=== PATIENT | male | born 1965 | race African-American/Black ===

== ENCOUNTER 2021-05-24 13:40 | Inpatient (IN) | payer OTHER ==
[2021-05-24] MEDS ORDERED: ONDANSETRON *ODT* 4 MG TABLET SL PRN (14:43)
[2021-05-24] MEDS ORDERED: MAG HYDROX/AL HYDROX/SIMETH 30 ML UNIT-DOSE CUP PO PRN (14:43)
[2021-05-24] MEDS ORDERED: diazePAM 5 MG TABLET PO PRN (14:43)
[2021-05-24] MEDS ORDERED: BISMUTH SUBSALICYLATE 524 MG/30 ML PO PRN (14:43)
[2021-05-24] MEDS ORDERED: NICOTINE 10 MG CARTRIDGE (INHALER) IH PRN (14:43)
[2021-05-24] MEDS ORDERED: ACETAMINOPHEN 325 MG TABLET (FP) PO PRN ×2 (14:43)
[2021-05-24] MEDS ORDERED: LOPERAMIDE HCL 2 MG CAPSULE PO PRN (14:43)
[2021-05-24] MEDS ORDERED: MAGNESIUM HYDROX 2400MG/30ML ORAL SUSPENSION 30 ML CUP PO PRN (14:43)
[2021-05-24] MEDS ORDERED: MENTHOL/PHENOL 1 EACH UD MM PRN (14:43)
[2021-05-24] MEDS ORDERED: MAGNESIUM CITRATE 300 ML BOTTLE PO PRN (14:43)
[2021-05-24 15:34] VITALS: BMI 19.5
[2021-05-24] MEDS: MELATONIN 5 MG TABLETS PO SCH (23:55)
[2021-05-24] MEDS: IBUPROFEN 400 MG TABLET (FP) PO PRN (23:55)
[2021-05-24] MEDS: THIAMINE HCL 100 MG TABLET (FP) PO SCH (23:55)
[2021-05-24] MEDS: hydrOXYzine PAMOATE 25 MG CAPSULE (FP) PO SCH ×2 (23:55→23:57)
[2021-05-25] MEDS: diazePAM 5 MG TABLET PO SCH ×6 (00:55→22:44)
[2021-05-25] MEDS: hydrOXYzine PAMOATE 25 MG CAPSULE (FP) PO SCH ×5 (05:32→22:44)
[2021-05-25] MEDS: PRENATAL VITAMINS W/ FOLIC ACID TABLET (FP) PO SCH (10:29)
[2021-05-25] MEDS: IBUPROFEN 400 MG TABLET (FP) PO PRN ×2 (10:31→22:44)
[2021-05-25 12:29] LABS: CALCIUM 8.6 mg/dL (8.5-10.1)
[2021-05-25 12:30] LABS: BLOOD UREA NITROGEN 17.1 mg/dL (7-18)
[2021-05-25 12:33] LABS: CREATININE 1.1 mg/dL (0.55-1.3); HEMATOCRIT 37.3 % (35.4-49); HEMOGLOBIN 12.3 GM/dL (11.7-16.9); MCH 28.9 pg (25.7-33.7); MCHC 32.9 g/dl (32.0-35.9); MEAN CELL VOLUME 87.7 fl (80-96); MEAN PLT VOLUME 9.5 fl (7.5-11.1); PLATELET COUNT 156 10^3/uL (134-434); RBC 4.25 M/mm3 (4.00-5.60); RDW 13.8 % (11.9-15.9); WHITE BLOOD COUNT 5.7 K/mm3 (4.0-10.0)
[2021-05-25 12:34] LABS: BILIRUBIN,TOTAL 0.4 mg/dL (0.2-1); TOT PROT 5.6 g/dl (6.4-8.2)
[2021-05-25] MEDS: THIAMINE HCL 100 MG TABLET (FP) PO SCH (22:44)
[2021-05-25] MEDS: MELATONIN 5 MG TABLETS PO SCH (23:01)
[2021-05-26] MEDS: diazePAM 5 MG TABLET PO SCH ×3 (05:43→22:17)
[2021-05-26] MEDS: hydrOXYzine PAMOATE 25 MG CAPSULE (FP) PO SCH ×5 (05:43→22:21)
[2021-05-26 10:06] LABS: SARS-CoV-2 NAA Not Detected (Not Detected)
[2021-05-26] MEDS: PRENATAL VITAMINS W/ FOLIC ACID TABLET (FP) PO SCH (10:17)
[2021-05-26] MEDS: THIAMINE HCL 100 MG TABLET (FP) PO SCH (22:16)
[2021-05-26] MEDS: LATANOPROST 0.005% OPHTH SOLN 2.5ML BOTTLE OU SCH (22:19)
[2021-05-26] MEDS: IBUPROFEN 400 MG TABLET (FP) PO PRN (22:19)
[2021-05-26] MEDS: MELATONIN 5 MG TABLETS PO SCH (22:21)
[2021-05-27] MEDS: hydrOXYzine PAMOATE 25 MG CAPSULE (FP) PO SCH ×5 (07:46→23:26)
[2021-05-27] MEDS: diazePAM 5 MG TABLET PO SCH ×2 (07:46→18:12)
[2021-05-27] MEDS: PRENATAL VITAMINS W/ FOLIC ACID TABLET (FP) PO SCH (10:31)
[2021-05-27] MEDS: METHOCARBAMOL 500 MG TABLET PO PRN (10:32)
[2021-05-27] MEDS: MELATONIN 5 MG TABLETS PO SCH (23:26)
[2021-05-27] MEDS: LATANOPROST 0.005% OPHTH SOLN 2.5ML BOTTLE OU SCH (23:27)
[2021-05-27] MEDS: THIAMINE HCL 100 MG TABLET (FP) PO SCH (23:27)
[2021-05-28] MEDS ORDERED: diazePAM 5 MG TABLET PO ONE (06:00)
[2021-05-28] MEDS: hydrOXYzine PAMOATE 25 MG CAPSULE (FP) PO SCH ×2 (06:28→10:13)
[2021-05-28 09:22] VITALS: BP 118/79; PULSE 83; TEMP 98.2
[2021-05-28] MEDS: PRENATAL VITAMINS W/ FOLIC ACID TABLET (FP) PO SCH (10:13)
[2021-05-28] MEDS: METHOCARBAMOL 500 MG TABLET PO PRN (10:13)
== END 2021-05-28 12:22 | disposition other institution (70) | DRG 774 ==
LOC: YASAS 13:40 → Y6N 18:44
PROVIDERS: ADMIT Allergy & Immunology; ATTEND Allergy & Immunology
PROC: HZ2ZZZZ Detoxification Services for Substance Abuse Treatment (ICD-10-PCS; principal; 2021-05-24)
DX: F10.20 Alcohol dependence, uncomplicated (principal); F14.20 Cocaine dependence, uncomplicated; F12.20 Cannabis dependence, uncomplicated; F17.210 Nicotine dependence, cigarettes, uncomplicated; H40.9 Unspecified glaucoma; L30.9 Dermatitis, unspecified
CPT/HCPCS: 36415; 80053; 85027; 86780; 93005; 93010; C9803-CS; U0003; U0005

== ENCOUNTER 2021-05-28 12:27 | Inpatient (IN) | payer OTHER ==
[2021-05-28] MEDS ORDERED: LOPERAMIDE HCL 2 MG CAPSULE PO PRN (14:06)
[2021-05-28] MEDS ORDERED: NICOTINE 10 MG CARTRIDGE (INHALER) IH PRN (14:06)
[2021-05-28] MEDS ORDERED: MENTHOL/PHENOL 1 EACH UD MM PRN (14:06)
[2021-05-28] MEDS ORDERED: ACETAMINOPHEN 325 MG TABLET (FP) PO PRN (14:06)
[2021-05-28] MEDS ORDERED: MAGNESIUM HYDROX 2400MG/30ML ORAL SUSPENSION 30 ML CUP PO PRN (14:06)
[2021-05-28] MEDS ORDERED: P-EPHED 60MG/TRIPROLIDI 2.5MG TABLET PO PRN (14:06)
[2021-05-28] MEDS ORDERED: MAGNESIUM CITRATE 300 ML BOTTLE PO PRN (14:06)
[2021-05-28] MEDS ORDERED: guaiFENesin 200 MG/10 ML 10 ML UNIT-DOSE CUPS PO PRN (14:06)
[2021-05-28] MEDS ORDERED: MAG HYDROX/AL HYDROX/SIMETH 30 ML UNIT-DOSE CUP PO PRN (14:06)
[2021-05-28] MEDS: THIAMINE HCL 100 MG TABLET (FP) PO SCH (22:17)
[2021-05-28] MEDS: LATANOPROST 0.005% OPHTH SOLN 2.5ML BOTTLE OU SCH (22:17)
[2021-05-28] MEDS: KETOCONAZOLE 2% CREAM - 60GM TUBE TP SCH (22:17)
[2021-05-28] MEDS: MELATONIN 5 MG TABLETS PO SCH (22:22)
[2021-05-29] MEDS: KETOCONAZOLE 2% CREAM - 60GM TUBE TP SCH ×3 (06:31→22:01)
[2021-05-29] MEDS: NICOTINE 7 MG/24 HOURS TOPICAL PATCH TD SCH (09:24)
[2021-05-29] MEDS: PRENATAL VITAMINS W/ FOLIC ACID TABLET (FP) PO SCH (09:24)
[2021-05-29] MEDS ORDERED: KETOCONAZOLE 2% CREAM - 60GM TUBE TP SCH (10:08)
[2021-05-29] MEDS: LIDOCAINE 2.5%/PRILOCAINE 2.5% 30 GRAM TUBE TP SCH ×2 (13:16→22:00)
[2021-05-29] MEDS ORDERED: LIDOCAINE 2.5%/PRILOCAINE 2.5% 30 GRAM TUBE TP SCH (14:00)
[2021-05-29] MEDS: IBUPROFEN 400 MG TABLET (FP) PO PRN (21:20)
[2021-05-29] MEDS: hydrOXYzine PAMOATE 25 MG CAPSULE (FP) PO PRN (21:21)
[2021-05-29] MEDS: MELATONIN 5 MG TABLETS PO SCH (22:00)
[2021-05-29] MEDS: LATANOPROST 0.005% OPHTH SOLN 2.5ML BOTTLE OU SCH (22:01)
[2021-05-29] MEDS: THIAMINE HCL 100 MG TABLET (FP) PO SCH (22:01)
[2021-05-30 06:48] VITALS: TEMP 97.1
[2021-05-30] MEDS: KETOCONAZOLE 2% CREAM - 60GM TUBE TP SCH ×3 (06:49→22:01)
[2021-05-30] MEDS: LIDOCAINE 2.5%/PRILOCAINE 2.5% 30 GRAM TUBE TP SCH ×3 (06:49→22:01)
[2021-05-30] MEDS: NICOTINE 7 MG/24 HOURS TOPICAL PATCH TD SCH (10:32)
[2021-05-30] MEDS: PRENATAL VITAMINS W/ FOLIC ACID TABLET (FP) PO SCH (10:32)
[2021-05-30] MEDS: TOLNAFTATE 1% POWDER 45 GM POW TP SCH ×2 (12:42→22:01)
[2021-05-30] MEDS ORDERED: COLLOIDAL OATMEAL 1 BAR EACH TP PRN (14:35)
[2021-05-30] MEDS: hydrOXYzine PAMOATE 25 MG CAPSULE (FP) PO PRN (21:58)
[2021-05-30] MEDS: IBUPROFEN 400 MG TABLET (FP) PO PRN (21:58)
[2021-05-30] MEDS: MELATONIN 5 MG TABLETS PO SCH (22:01)
[2021-05-30] MEDS: THIAMINE HCL 100 MG TABLET (FP) PO SCH (22:01)
[2021-05-30] MEDS: LATANOPROST 0.005% OPHTH SOLN 2.5ML BOTTLE OU SCH (22:01)
[2021-05-31 06:39] VITALS: BP 113/79; PULSE 64
[2021-05-31] MEDS: LIDOCAINE 2.5%/PRILOCAINE 2.5% 30 GRAM TUBE TP SCH ×2 (07:10→13:55)
[2021-05-31] MEDS: KETOCONAZOLE 2% CREAM - 60GM TUBE TP SCH ×2 (07:24→13:55)
[2021-05-31] MEDS: PRENATAL VITAMINS W/ FOLIC ACID TABLET (FP) PO SCH (11:00)
[2021-05-31] MEDS: TOLNAFTATE 1% POWDER 45 GM POW TP SCH (11:00)
[2021-05-31] MEDS: NICOTINE 7 MG/24 HOURS TOPICAL PATCH TD SCH (11:00)
[2021-06-01 14:08] LABS: SARS-CoV-2 NAA Not Detected (Not Detected)
== END 2021-05-31 14:08 | disposition left against medical advice (07) | DRG 770 ==
LOC: YASAS 12:27 → Y3E 12:28
PROVIDERS: ADMIT Allergy & Immunology; ATTEND Allergy & Immunology
PROC: HZ42ZZZ Group Counseling for Substance Abuse Treatment, Cognitive-Behavioral (ICD-10-PCS; principal; 2021-05-28)
DX: F10.20 Alcohol dependence, uncomplicated (principal); F14.20 Cocaine dependence, uncomplicated; F12.20 Cannabis dependence, uncomplicated; F17.210 Nicotine dependence, cigarettes, uncomplicated; H40.9 Unspecified glaucoma; Z88.8 Allergy status to other drugs, medicaments and biological substances
CPT/HCPCS: C9803-CS; U0003; U0005

== ENCOUNTER 2021-08-14 14:36 | Inpatient (IN) | payer OTHER ==
[2021-08-14] MEDS ORDERED: MAG HYDROX/AL HYDROX/SIMETH 30 ML UNIT-DOSE CUP PO PRN (17:56)
[2021-08-14] MEDS ORDERED: MAGNESIUM CITRATE 300 ML BOTTLE PO PRN (17:56)
[2021-08-14] MEDS ORDERED: DICYCLOMINE HCL 10 MG CAPSULE PO PRN (17:56)
[2021-08-14] MEDS ORDERED: BISMUTH SUBSALICYLATE 524 MG/30 ML PO PRN (17:56)
[2021-08-14] MEDS ORDERED: LOPERAMIDE HCL 2 MG CAPSULE PO PRN (17:56)
[2021-08-14] MEDS ORDERED: MAGNESIUM HYDROX 2400MG/30ML ORAL SUSPENSION 30 ML CUP PO PRN (17:56)
[2021-08-14] MEDS ORDERED: hydrOXYzine PAMOATE 25 MG CAPSULE (FP) PO PRN (17:56)
[2021-08-14] MEDS ORDERED: ACETAMINOPHEN 325 MG TABLET (FP) PO PRN ×2 (17:56)
[2021-08-14] MEDS ORDERED: IBUPROFEN 600 MG TABLET (FP) PO PRN (17:56)
[2021-08-14] MEDS ORDERED: ONDANSETRON *ODT* 4 MG TABLET SL PRN (17:56)
[2021-08-14] MEDS ORDERED: MELATONIN 5 MG TABLETS PO PRN (17:56)
[2021-08-14] MEDS ORDERED: METHOCARBAMOL 500 MG TABLET PO PRN (17:56)
[2021-08-14] MEDS ORDERED: P-EPHED 60MG/TRIPROLIDI 2.5MG TABLET PO PRN (17:56)
[2021-08-14] MEDS ORDERED: BENZOCAINE/MENTHOL (CHLORASEPTIC ) LOZENGE MM PRN (17:56)
[2021-08-14] MEDS ORDERED: IBUPROFEN 400 MG TABLET (FP) PO PRN (17:56)
[2021-08-14 18:33] VITALS: BMI 20.9
[2021-08-14] MEDS ORDERED: THIAMINE HCL 100 MG TABLET (FP) PO SCH (22:00)
[2021-08-15] MEDS ORDERED: PRENATAL VITAMINS W/ FOLIC ACID TABLET (FP) PO SCH (10:00)
[2021-08-15] MEDS ORDERED: amLODIPine BESYLATE 5 MG TABLET (FP) PO SCH (10:45)
[2021-08-15 12:00] LABS: HEMATOCRIT 43.6 % (35.4-49); HEMOGLOBIN 14.3 GM/dL (11.7-16.9); MCH 29.2 pg (25.7-33.7); MCHC 32.8 g/dl (32.0-35.9); MEAN PLT VOLUME 9.2 fl (7.5-11.1); PLATELET COUNT 200 10^3/uL (134-434); RDW 13.1 % (11.9-15.9); WHITE BLOOD COUNT 9.6 K/mm3 (4.0-10.0)
[2021-08-15 12:12] LABS: ALBUMIN 3.2 g/dl (3.4-5.0)
[2021-08-15 12:26] LABS: BILIRUBIN,TOTAL 0.5 mg/dL (0.2-1); CREATININE 1.3 mg/dL (0.55-1.3); TOT PROT 6.4 g/dl (6.4-8.2)
[2021-08-15 13:15] VITALS: BP 162/94; PULSE 88; TEMP 98.8
[2021-08-15] MEDS ORDERED: LATANOPROST 0.005% OPHTH SOLN 2.5ML BOTTLE OU SCH (22:00)
== END 2021-08-15 12:51 | disposition other institution (70) | DRG 774 ==
LOC: YASAS 14:36 → Y6N 18:04
PROVIDERS: ADMIT Allergy & Immunology; ATTEND Surgery
PROC: HZ2ZZZZ Detoxification Services for Substance Abuse Treatment (ICD-10-PCS; principal; 2021-08-14)
DX: F10.20 Alcohol dependence, uncomplicated (principal); F14.20 Cocaine dependence, uncomplicated; F12.20 Cannabis dependence, uncomplicated; F17.210 Nicotine dependence, cigarettes, uncomplicated; H40.9 Unspecified glaucoma; I10 Essential (primary) hypertension
CPT/HCPCS: 36415; 80053; 85027; 86780; 87811; C9803-CS; U0003; U0005

== ENCOUNTER 2021-08-15 13:02 | Inpatient (IN) | payer OTHER ==
[2021-08-15] MEDS ORDERED: MAG HYDROX/AL HYDROX/SIMETH 30 ML UNIT-DOSE CUP PO PRN (15:56)
[2021-08-15] MEDS ORDERED: MAGNESIUM CITRATE 300 ML BOTTLE PO PRN (15:56)
[2021-08-15] MEDS ORDERED: NICOTINE 10 MG CARTRIDGE (INHALER) IH PRN (15:56)
[2021-08-15] MEDS ORDERED: guaiFENesin 200 MG/10 ML 10 ML UNIT-DOSE CUPS PO PRN (15:56)
[2021-08-15] MEDS ORDERED: P-EPHED 60MG/TRIPROLIDI 2.5MG TABLET PO PRN (15:56)
[2021-08-15] MEDS ORDERED: BENZOCAINE/MENTHOL (CHLORASEPTIC ) LOZENGE MM PRN (15:56)
[2021-08-15] MEDS ORDERED: hydrOXYzine PAMOATE 25 MG CAPSULE (FP) PO PRN (15:56)
[2021-08-15] MEDS ORDERED: LOPERAMIDE HCL 2 MG CAPSULE PO PRN (15:56)
[2021-08-15] MEDS ORDERED: MAGNESIUM HYDROX 2400MG/30ML ORAL SUSPENSION 30 ML CUP PO PRN (15:56)
[2021-08-15] MEDS: THIAMINE HCL 100 MG TABLET (FP) PO SCH (21:14)
[2021-08-15] MEDS: MELATONIN 5 MG TABLETS PO SCH (21:14)
[2021-08-15] MEDS: IBUPROFEN 400 MG TABLET (FP) PO PRN (21:16)
[2021-08-16] MEDS: PRENATAL VITAMINS W/ FOLIC ACID TABLET (FP) PO SCH (10:02)
[2021-08-16] MEDS: NICOTINE 7 MG/24 HOURS TOPICAL PATCH TD SCH (10:02)
[2021-08-16] MEDS: THIAMINE HCL 100 MG TABLET (FP) PO SCH (21:12)
[2021-08-16] MEDS: MELATONIN 5 MG TABLETS PO SCH (21:12)
[2021-08-16] MEDS: ACETAMINOPHEN 325 MG TABLET (FP) PO PRN (21:14)
[2021-08-17] MEDS: PRENATAL VITAMINS W/ FOLIC ACID TABLET (FP) PO SCH (10:09)
[2021-08-17] MEDS: IBUPROFEN 400 MG TABLET (FP) PO PRN ×2 (10:10→21:12)
[2021-08-17] MEDS: NICOTINE 7 MG/24 HOURS TOPICAL PATCH TD SCH (10:10)
[2021-08-17] MEDS: MELATONIN 5 MG TABLETS PO SCH (21:11)
[2021-08-17] MEDS: THIAMINE HCL 100 MG TABLET (FP) PO SCH (21:11)
[2021-08-18] MEDS: PRENATAL VITAMINS W/ FOLIC ACID TABLET (FP) PO SCH (10:11)
[2021-08-18] MEDS: NICOTINE 7 MG/24 HOURS TOPICAL PATCH TD SCH (11:31)
[2021-08-18] MEDS: THIAMINE HCL 100 MG TABLET (FP) PO SCH (21:08)
[2021-08-18] MEDS: MELATONIN 5 MG TABLETS PO SCH (21:08)
[2021-08-18] MEDS: IBUPROFEN 400 MG TABLET (FP) PO PRN (21:09)
[2021-08-19] MEDS: PRENATAL VITAMINS W/ FOLIC ACID TABLET (FP) PO SCH (10:02)
[2021-08-19] MEDS: NICOTINE 7 MG/24 HOURS TOPICAL PATCH TD SCH (10:02)
[2021-08-19] MEDS: METHOCARBAMOL 500 MG TABLET PO PRN ×2 (10:04→21:13)
[2021-08-19] MEDS: ACETAMINOPHEN 325 MG TABLET (FP) PO PRN (21:13)
[2021-08-19] MEDS: THIAMINE HCL 100 MG TABLET (FP) PO SCH (21:13)
[2021-08-19] MEDS: MELATONIN 5 MG TABLETS PO SCH (21:15)
[2021-08-19] MEDS: TOLNAFTATE 1% CREAM 15 GM TUBE TP SCH (21:16)
[2021-08-20] MEDS: NICOTINE 7 MG/24 HOURS TOPICAL PATCH TD SCH (10:08)
[2021-08-20] MEDS: PRENATAL VITAMINS W/ FOLIC ACID TABLET (FP) PO SCH (10:08)
[2021-08-20] MEDS: TOLNAFTATE 1% CREAM 15 GM TUBE TP SCH ×2 (10:08→22:46)
[2021-08-20] MEDS: METHOCARBAMOL 500 MG TABLET PO PRN ×2 (10:09→21:20)
[2021-08-20] MEDS: THIAMINE HCL 100 MG TABLET (FP) PO SCH (21:20)
[2021-08-20] MEDS: MELATONIN 5 MG TABLETS PO SCH (21:21)
[2021-08-20] MEDS: ACETAMINOPHEN 325 MG TABLET (FP) PO PRN (21:21)
[2021-08-21] MEDS: PRENATAL VITAMINS W/ FOLIC ACID TABLET (FP) PO SCH (10:34)
[2021-08-21] MEDS: TOLNAFTATE 1% CREAM 15 GM TUBE TP SCH ×2 (10:34→22:06)
[2021-08-21] MEDS: NICOTINE 7 MG/24 HOURS TOPICAL PATCH TD SCH (10:34)
[2021-08-21] MEDS: MELATONIN 5 MG TABLETS PO SCH (22:07)
[2021-08-21] MEDS: ACETAMINOPHEN 325 MG TABLET (FP) PO PRN (22:07)
[2021-08-21] MEDS: THIAMINE HCL 100 MG TABLET (FP) PO SCH (22:07)
[2021-08-21] MEDS: METHOCARBAMOL 500 MG TABLET PO PRN (22:07)
[2021-08-22] MEDS: PRENATAL VITAMINS W/ FOLIC ACID TABLET (FP) PO SCH (10:59)
[2021-08-22] MEDS: NICOTINE 7 MG/24 HOURS TOPICAL PATCH TD SCH (10:59)
[2021-08-22] MEDS: TOLNAFTATE 1% CREAM 15 GM TUBE TP SCH ×2 (10:59→22:15)
[2021-08-22] MEDS: THIAMINE HCL 100 MG TABLET (FP) PO SCH (22:10)
[2021-08-22] MEDS: METHOCARBAMOL 500 MG TABLET PO PRN (22:10)
[2021-08-22] MEDS: ACETAMINOPHEN 325 MG TABLET (FP) PO PRN (22:11)
[2021-08-22] MEDS: MELATONIN 5 MG TABLETS PO SCH (22:30)
[2021-08-23] MEDS ORDERED: METHYL SALICYLATE/MENTHOL OINT 30 GM TUBE TP PRN (09:31)
[2021-08-23] MEDS: IBUPROFEN 400 MG TABLET (FP) PO PRN ×3 (09:55→23:57)
[2021-08-23] MEDS: PRENATAL VITAMINS W/ FOLIC ACID TABLET (FP) PO SCH (09:55)
[2021-08-23] MEDS: NICOTINE 7 MG/24 HOURS TOPICAL PATCH TD SCH (09:57)
[2021-08-23] MEDS: TOLNAFTATE 1% CREAM 15 GM TUBE TP SCH ×2 (09:57→21:16)
[2021-08-23] MEDS: BENZOCAINE 20 % GEL TUBE MM PRN (20:29)
[2021-08-23] MEDS: MELATONIN 5 MG TABLETS PO SCH (21:15)
[2021-08-23] MEDS: ACETAMINOPHEN 325 MG TABLET (FP) PO PRN (21:16)
[2021-08-23] MEDS: METHOCARBAMOL 500 MG TABLET PO PRN (21:16)
[2021-08-23] MEDS: THIAMINE HCL 100 MG TABLET (FP) PO SCH (21:16)
[2021-08-24] MEDS: IBUPROFEN 400 MG TABLET (FP) PO PRN ×3 (06:28→21:20)
[2021-08-24] MEDS: PRENATAL VITAMINS W/ FOLIC ACID TABLET (FP) PO SCH (09:49)
[2021-08-24] MEDS: NICOTINE 7 MG/24 HOURS TOPICAL PATCH TD SCH (09:49)
[2021-08-24] MEDS: ACETAMINOPHEN 325 MG TABLET (FP) PO PRN (09:50)
[2021-08-24] MEDS: TOLNAFTATE 1% CREAM 15 GM TUBE TP SCH ×2 (09:51→21:19)
[2021-08-24] MEDS: BENZOCAINE 20 % GEL TUBE MM PRN (15:19)
[2021-08-24] MEDS: METHOCARBAMOL 500 MG TABLET PO PRN (21:19)
[2021-08-24] MEDS: MELATONIN 5 MG TABLETS PO SCH (21:19)
[2021-08-24] MEDS: THIAMINE HCL 100 MG TABLET (FP) PO SCH (21:20)
[2021-08-25] MEDS: IBUPROFEN 400 MG TABLET (FP) PO PRN ×2 (07:26→17:15)
[2021-08-25] MEDS: METHOCARBAMOL 500 MG TABLET PO PRN ×2 (09:52→21:17)
[2021-08-25] MEDS: TOLNAFTATE 1% CREAM 15 GM TUBE TP SCH ×2 (11:10→21:16)
[2021-08-25] MEDS: NICOTINE 7 MG/24 HOURS TOPICAL PATCH TD SCH (11:10)
[2021-08-25] MEDS: PRENATAL VITAMINS W/ FOLIC ACID TABLET (FP) PO SCH (11:10)
[2021-08-25] MEDS: MELATONIN 5 MG TABLETS PO SCH (21:16)
[2021-08-25] MEDS: THIAMINE HCL 100 MG TABLET (FP) PO SCH (21:17)
[2021-08-25] MEDS: ACETAMINOPHEN 325 MG TABLET (FP) PO PRN (21:17)
[2021-08-26] MEDS: IBUPROFEN 400 MG TABLET (FP) PO PRN ×2 (09:41→21:22)
[2021-08-26] MEDS: NICOTINE 7 MG/24 HOURS TOPICAL PATCH TD SCH (09:42)
[2021-08-26] MEDS: PRENATAL VITAMINS W/ FOLIC ACID TABLET (FP) PO SCH (09:42)
[2021-08-26] MEDS: TOLNAFTATE 1% CREAM 15 GM TUBE TP SCH ×2 (09:42→21:22)
[2021-08-26] MEDS: THIAMINE HCL 100 MG TABLET (FP) PO SCH (21:22)
[2021-08-26] MEDS: MELATONIN 5 MG TABLETS PO SCH (21:22)
[2021-08-26] MEDS: METHOCARBAMOL 500 MG TABLET PO PRN (21:22)
[2021-08-27 07:01] VITALS: BP 111/72; PULSE 81; TEMP 97.5
[2021-08-27] MEDS: NICOTINE 7 MG/24 HOURS TOPICAL PATCH TD SCH (10:40)
[2021-08-27] MEDS: TOLNAFTATE 1% CREAM 15 GM TUBE TP SCH (10:40)
[2021-08-27] MEDS: PRENATAL VITAMINS W/ FOLIC ACID TABLET (FP) PO SCH (10:40)
== END 2021-08-27 16:40 | disposition left against medical advice (07) | DRG 770 ==
LOC: YASAS 13:02 → Y5N 13:03
PROVIDERS: ADMIT Allergy & Immunology; ATTEND Psychiatry & Neurology Pain Medicine
PROC: HZ42ZZZ Group Counseling for Substance Abuse Treatment, Cognitive-Behavioral (ICD-10-PCS; principal; 2021-08-13)
DX: F10.20 Alcohol dependence, uncomplicated (principal); F14.20 Cocaine dependence, uncomplicated; F12.20 Cannabis dependence, uncomplicated; F17.210 Nicotine dependence, cigarettes, uncomplicated; I10 Essential (primary) hypertension; M79.642 Pain in left hand
CPT/HCPCS: 73130-TC-LT-FY

== ENCOUNTER 2021-09-25 15:52 | Inpatient (IN) | payer OTHER ==
[2021-09-25 19:25] VITALS: BMI 20.5
[2021-09-25] MEDS ORDERED: LOPERAMIDE HCL 2 MG CAPSULE PO PRN (20:14)
[2021-09-25] MEDS ORDERED: MAGNESIUM CITRATE 300 ML BOTTLE PO PRN (20:14)
[2021-09-25] MEDS ORDERED: ONDANSETRON *ODT* 4 MG TABLET SL PRN (20:14)
[2021-09-25] MEDS ORDERED: MAGNESIUM HYDROX 2400MG/30ML ORAL SUSPENSION 30 ML CUP PO PRN (20:14)
[2021-09-25] MEDS ORDERED: DICYCLOMINE HCL 10 MG CAPSULE PO PRN (20:14)
[2021-09-25] MEDS ORDERED: MAG HYDROX/AL HYDROX/SIMETH 30 ML UNIT-DOSE CUP PO PRN (20:14)
[2021-09-25] MEDS ORDERED: BISMUTH SUBSALICYLATE 524 MG/30 ML PO PRN (20:14)
[2021-09-25] MEDS ORDERED: BENZOCAINE/MENTHOL (CHLORASEPTIC ) LOZENGE MM PRN (20:14)
[2021-09-25] MEDS ORDERED: IBUPROFEN 400 MG TABLET (FP) PO PRN (20:14)
[2021-09-25] MEDS ORDERED: NICOTINE 10 MG CARTRIDGE (INHALER) IH PRN (20:14)
[2021-09-25] MEDS ORDERED: ACETAMINOPHEN 325 MG TABLET (FP) PO PRN ×2 (20:14)
[2021-09-25] MEDS ORDERED: KETOCONAZOLE 2% CREAM - 60GM TUBE TP SCH (22:00)
[2021-09-26] MEDS: THIAMINE HCL 100 MG TABLET (FP) PO SCH ×2 (01:36→22:58)
[2021-09-26] MEDS: PRENATAL VITAMINS W/ FOLIC ACID TABLET (FP) PO SCH ×2 (01:37→11:32)
[2021-09-26] MEDS: MELATONIN 5 MG TABLETS PO SCH ×2 (01:37→22:56)
[2021-09-26] MEDS: hydrOXYzine PAMOATE 25 MG CAPSULE (FP) PO SCH ×6 (01:37→22:58)
[2021-09-26] MEDS ORDERED: IBUPROFEN 600 MG TABLET (FP) PO ONE (01:39)
[2021-09-26] MEDS: IBUPROFEN 600 MG TABLET (FP) PO PRN (01:41)
[2021-09-26] MEDS ORDERED: hydrOXYzine PAMOATE 25 MG CAPSULE (FP) PO ONE (06:25)
[2021-09-26] MEDS: METHOCARBAMOL 500 MG TABLET PO PRN ×2 (09:10→22:58)
[2021-09-26] MEDS ORDERED: cloNIDine HCL 0.1 MG TABLET PO ONE (09:21)
[2021-09-26 10:25] LABS: HEMATOCRIT 44.4 % (35.4-49); HEMOGLOBIN 14.3 GM/dL (11.7-16.9); MCH 28.6 pg (25.7-33.7); MCHC 32.2 g/dl (32.0-35.9); MEAN CELL VOLUME 88.8 fl (80-96); MEAN PLT VOLUME 9.3 fl (7.5-11.1); PLATELET COUNT 203 10^3/uL (134-434); RDW 13.4 % (11.9-15.9); WHITE BLOOD COUNT 10.6 K/mm3 (4.0-10.0)
[2021-09-26 10:53] LABS: BLOOD UREA NITROGEN 17.4 mg/dL (7-18); CALCIUM 8.7 mg/dL (8.5-10.1)
[2021-09-26 10:54] LABS: ALBUMIN 3.2 g/dl (3.4-5.0)
[2021-09-26 10:57] LABS: CREATININE 1.3 mg/dL (0.55-1.3)
[2021-09-26 10:58] LABS: BILIRUBIN,TOTAL 1.1 mg/dL (0.2-1); TOT PROT 6.3 g/dl (6.4-8.2)
[2021-09-26] MEDS ORDERED: LATANOPROST 0.005% OPHTH SOLN 2.5ML BOTTLE OU SCH (22:00)
[2021-09-26] MEDS: BETAMETHASONE DIPR 0.05% CREAM 15 GM TUBE TP SCH (23:00)
[2021-09-27] MEDS: hydrOXYzine PAMOATE 25 MG CAPSULE (FP) PO SCH ×3 (06:58→13:48)
[2021-09-27] MEDS: PRENATAL VITAMINS W/ FOLIC ACID TABLET (FP) PO SCH (10:30)
[2021-09-27] MEDS: METHOCARBAMOL 500 MG TABLET PO PRN (10:31)
[2021-09-27] MEDS: BETAMETHASONE DIPR 0.05% CREAM 15 GM TUBE TP SCH (10:31)
[2021-09-27] MEDS: IBUPROFEN 600 MG TABLET (FP) PO PRN (10:32)
[2021-09-27 13:25] VITALS: BP 128/63; PULSE 86; RESP 18; TEMP 98.5
== END 2021-09-27 14:47 | disposition home or self-care (01) | DRG 774 ==
LOC: YASAS 15:52 → Y3N 09-26 06:27
PROVIDERS: ADMIT Allergy & Immunology; ATTEND Surgery
PROC: HZ2ZZZZ Detoxification Services for Substance Abuse Treatment (ICD-10-PCS; principal; 2021-09-26)
DX: F10.230 Alcohol dependence with withdrawal, uncomplicated (principal); F14.20 Cocaine dependence, uncomplicated; F17.210 Nicotine dependence, cigarettes, uncomplicated; H40.9 Unspecified glaucoma; Z88.8 Allergy status to other drugs, medicaments and biological substances
CPT/HCPCS: 36415; 80053; 85027; 86780; 87811; C9803-CS; J0735; U0003; U0005

== ENCOUNTER 2021-10-23 12:47 | Inpatient (IN) | payer OTHER ==
[2021-10-23 14:03] VITALS: BMI 22.7
[2021-10-23] MEDS ORDERED: IBUPROFEN 400 MG TABLET (FP) PO PRN (15:41)
[2021-10-23] MEDS ORDERED: diazePAM 5 MG TABLET PO PRN (15:41)
[2021-10-23] MEDS ORDERED: MAG HYDROX/AL HYDROX/SIMETH 30 ML UNIT-DOSE CUP PO PRN (15:41)
[2021-10-23] MEDS ORDERED: MAGNESIUM CITRATE 300 ML BOTTLE PO PRN (15:41)
[2021-10-23] MEDS ORDERED: ONDANSETRON *ODT* 4 MG TABLET SL PRN (15:41)
[2021-10-23] MEDS ORDERED: MAGNESIUM HYDROX 2400MG/30ML ORAL SUSPENSION 30 ML CUP PO PRN (15:41)
[2021-10-23] MEDS ORDERED: LOPERAMIDE HCL 2 MG CAPSULE PO PRN (15:41)
[2021-10-23] MEDS ORDERED: BISMUTH SUBSALICYLATE 524 MG/30 ML PO PRN (15:41)
[2021-10-23] MEDS ORDERED: BENZOCAINE/MENTHOL (CHLORASEPTIC ) LOZENGE MM PRN (15:41)
[2021-10-23] MEDS ORDERED: NICOTINE 10 MG CARTRIDGE (INHALER) IH PRN (15:41)
[2021-10-23] MEDS ORDERED: ACETAMINOPHEN 325 MG TABLET (FP) PO PRN ×2 (15:41)
[2021-10-23] MEDS ORDERED: DICYCLOMINE HCL 10 MG CAPSULE PO PRN (15:41)
[2021-10-23] MEDS: PRENATAL VITAMINS W/ FOLIC ACID TABLET (FP) PO SCH (23:00)
[2021-10-23] MEDS: KETOCONAZOLE 2% CREAM - 60GM TUBE TP SCH (23:00)
[2021-10-23] MEDS: MELATONIN 5 MG TABLETS PO SCH (23:00)
[2021-10-23] MEDS: diazePAM 5 MG TABLET PO SCH (23:01)
[2021-10-23] MEDS: hydrOXYzine PAMOATE 25 MG CAPSULE (FP) PO SCH ×2 (23:02→23:03)
[2021-10-23] MEDS: THIAMINE HCL 100 MG TABLET (FP) PO SCH (23:02)
[2021-10-23] MEDS: LATANOPROST 0.005% OPHTH SOLN 2.5ML BOTTLE OU SCH (23:02)
[2021-10-24] MEDS: KETOCONAZOLE 2% CREAM - 60GM TUBE TP SCH ×3 (05:53→22:30)
[2021-10-24] MEDS: diazePAM 5 MG TABLET PO SCH ×4 (05:54→23:07)
[2021-10-24] MEDS: hydrOXYzine PAMOATE 25 MG CAPSULE (FP) PO SCH ×5 (07:37→23:07)
[2021-10-24 10:11] LABS: HEMATOCRIT 42.9 % (35.4-49); HEMOGLOBIN 13.9 GM/dL (11.7-16.9); MCH 28.9 pg (25.7-33.7); MCHC 32.5 g/dl (32.0-35.9); MEAN PLT VOLUME 9.4 fl (7.5-11.1); PLATELET COUNT 193 10^3/uL (134-434); RBC 4.82 M/mm3 (4.00-5.60); RDW 12.9 % (11.9-15.9); WHITE BLOOD COUNT 9.5 K/mm3 (4.0-10.0)
[2021-10-24 10:28] LABS: CALCIUM 8.6 mg/dL (8.5-10.1)
[2021-10-24 10:29] LABS: ALBUMIN 3.2 g/dl (3.4-5.0)
[2021-10-24 10:31] LABS: CREATININE 1.5 mg/dL (0.55-1.3)
[2021-10-24 10:32] LABS: BILIRUBIN,TOTAL 0.9 mg/dL (0.2-1); TOT PROT 6.5 g/dl (6.4-8.2)
[2021-10-24] MEDS: METHOCARBAMOL 500 MG TABLET PO PRN ×2 (11:01→17:37)
[2021-10-24] MEDS: PRENATAL VITAMINS W/ FOLIC ACID TABLET (FP) PO SCH (11:01)
[2021-10-24] MEDS: LATANOPROST 0.005% OPHTH SOLN 2.5ML BOTTLE OU SCH (22:30)
[2021-10-24] MEDS: THIAMINE HCL 100 MG TABLET (FP) PO SCH (23:06)
[2021-10-24] MEDS: MELATONIN 5 MG TABLETS PO SCH (23:07)
[2021-10-24] MEDS: IBUPROFEN 600 MG TABLET (FP) PO PRN (23:11)
[2021-10-25] MEDS: hydrOXYzine PAMOATE 25 MG CAPSULE (FP) PO SCH ×5 (06:29→22:40)
[2021-10-25] MEDS: diazePAM 5 MG TABLET PO SCH ×3 (06:29→22:41)
[2021-10-25] MEDS: KETOCONAZOLE 2% CREAM - 60GM TUBE TP SCH ×3 (08:28→23:40)
[2021-10-25] MEDS: PRENATAL VITAMINS W/ FOLIC ACID TABLET (FP) PO SCH (10:51)
[2021-10-25] MEDS: METHOCARBAMOL 500 MG TABLET PO PRN (17:53)
[2021-10-25] MEDS: MELATONIN 5 MG TABLETS PO SCH (22:40)
[2021-10-25] MEDS: THIAMINE HCL 100 MG TABLET (FP) PO SCH (22:40)
[2021-10-25] MEDS: LATANOPROST 0.005% OPHTH SOLN 2.5ML BOTTLE OU SCH (23:41)
[2021-10-26] MEDS: diazePAM 5 MG TABLET PO SCH ×2 (05:51→17:50)
[2021-10-26] MEDS: hydrOXYzine PAMOATE 25 MG CAPSULE (FP) PO SCH ×5 (05:51→22:28)
[2021-10-26] MEDS: KETOCONAZOLE 2% CREAM - 60GM TUBE TP SCH ×3 (05:57→22:28)
[2021-10-26] MEDS: PRENATAL VITAMINS W/ FOLIC ACID TABLET (FP) PO SCH (10:28)
[2021-10-26 21:05] VITALS: RESP 18
[2021-10-26] MEDS: IBUPROFEN 600 MG TABLET (FP) PO PRN (22:25)
[2021-10-26] MEDS: LATANOPROST 0.005% OPHTH SOLN 2.5ML BOTTLE OU SCH (22:26)
[2021-10-26] MEDS: MELATONIN 5 MG TABLETS PO SCH (22:28)
[2021-10-26] MEDS: THIAMINE HCL 100 MG TABLET (FP) PO SCH (22:28)
[2021-10-27] MEDS: hydrOXYzine PAMOATE 25 MG CAPSULE (FP) PO SCH ×2 (05:33→11:09)
[2021-10-27] MEDS: KETOCONAZOLE 2% CREAM - 60GM TUBE TP SCH (05:35)
[2021-10-27] MEDS ORDERED: diazePAM 5 MG TABLET PO ONE (06:00)
[2021-10-27 09:48] VITALS: BP 141/84; PULSE 82; TEMP 97.1
[2021-10-27] MEDS: PRENATAL VITAMINS W/ FOLIC ACID TABLET (FP) PO SCH (11:09)
== END 2021-10-27 11:55 | disposition home or self-care (01) | DRG 774 ==
LOC: YASAS 12:47 → Y6N 20:03
PROVIDERS: ADMIT Allergy & Immunology; ATTEND Surgery
PROC: HZ2ZZZZ Detoxification Services for Substance Abuse Treatment (ICD-10-PCS; principal; 2021-10-23)
DX: F10.230 Alcohol dependence with withdrawal, uncomplicated (principal); F14.20 Cocaine dependence, uncomplicated; F12.20 Cannabis dependence, uncomplicated; F17.210 Nicotine dependence, cigarettes, uncomplicated; H40.9 Unspecified glaucoma; Z88.8 Allergy status to other drugs, medicaments and biological substances
CPT/HCPCS: 36415; 80053; 82962; 85027; 86780; C9803-CS; U0003; U0005

== ENCOUNTER 2021-12-26 18:23 | Inpatient (IN) | payer OTHER ==
[2021-12-26 19:18] VITALS: BMI 21.9
[2021-12-26] MEDS ORDERED: NICOTINE 10 MG CARTRIDGE (INHALER) IH PRN (19:51)
[2021-12-26] MEDS ORDERED: LOPERAMIDE HCL 2 MG CAPSULE PO PRN (19:51)
[2021-12-26] MEDS ORDERED: NALOXONE HCL (KLOXXADO) 8 MG SPRAY NS PRN (19:51)
[2021-12-26] MEDS ORDERED: MAG HYDROX/AL HYDROX/SIMETH 30 ML UNIT-DOSE CUP PO PRN (19:51)
[2021-12-26] MEDS ORDERED: BISMUTH SUBSALICYLATE 524 MG/30 ML PO PRN (19:51)
[2021-12-26] MEDS ORDERED: ONDANSETRON *ODT* 4 MG TABLET SL PRN (19:51)
[2021-12-26] MEDS ORDERED: ACETAMINOPHEN 325 MG TABLET (FP) PO PRN ×2 (19:51)
[2021-12-26] MEDS ORDERED: MAGNESIUM CITRATE 300 ML BOTTLE PO PRN (19:51)
[2021-12-26] MEDS ORDERED: IBUPROFEN 400 MG TABLET (FP) PO PRN (19:51)
[2021-12-26] MEDS ORDERED: IBUPROFEN 600 MG TABLET (FP) PO PRN (19:51)
[2021-12-26] MEDS ORDERED: NICOTINE POLACRILEX 2 MG GUM BUC PRN (19:51)
[2021-12-26] MEDS ORDERED: BENZOCAINE/MENTHOL (CHLORASEPTIC ) LOZENGE MM PRN (19:51)
[2021-12-26] MEDS ORDERED: DICYCLOMINE HCL 10 MG CAPSULE PO PRN (19:51)
[2021-12-26] MEDS ORDERED: MAGNESIUM HYDROX 2400MG/30ML ORAL SUSPENSION 30 ML CUP PO PRN (19:51)
[2021-12-26] MEDS ORDERED: LORazepam 1 MG TABLET PO PRN (19:51)
[2021-12-26] MEDS ORDERED: LORazepam 2 MG TABLET PO SCH (23:00)
[2021-12-26] MEDS: THIAMINE HCL 100 MG TABLET (FP) PO SCH (23:06)
[2021-12-26] MEDS: diazePAM 5 MG TABLET PO SCH (23:07)
[2021-12-26] MEDS: MELATONIN 5 MG TABLETS PO SCH (23:11)
[2021-12-27] MEDS: CLOTRIMAZOLE 1% CREAM TP SCH ×3 (00:26→22:41)
[2021-12-27] MEDS: diazePAM 5 MG TABLET PO SCH ×4 (06:23→22:32)
[2021-12-27] MEDS: METHOCARBAMOL 500 MG TABLET PO PRN (10:47)
[2021-12-27] MEDS: PRENATAL VITAMINS W/ FOLIC ACID TABLET (FP) PO SCH (10:47)
[2021-12-27] MEDS: hydrOXYzine PAMOATE 25 MG CAPSULE (FP) PO PRN (10:47)
[2021-12-27] MEDS: NICOTINE 7 MG/24 HOURS TOPICAL PATCH TD SCH (10:48)
[2021-12-27 11:19] LABS: HEMATOCRIT 41.8 % (35.4-49); HEMOGLOBIN 13.8 GM/dL (11.7-16.9); MCH 29.4 pg (25.7-33.7); MEAN CELL VOLUME 88.9 fl (80-96); MEAN PLT VOLUME 9.2 fl (7.5-11.1); PLATELET COUNT 213 10^3/uL (134-434); RDW 13.2 % (11.9-15.9); WHITE BLOOD COUNT 6.6 K/mm3 (4.0-10.0)
[2021-12-27 11:31] LABS: ALBUMIN 3.1 g/dl (3.4-5.0); CALCIUM 8.4 mg/dL (8.5-10.1)
[2021-12-27 11:32] LABS: BLOOD UREA NITROGEN 20.8 mg/dL (7-18)
[2021-12-27 11:34] LABS: CREATININE 1.3 mg/dL (0.55-1.3)
[2021-12-27 11:36] LABS: BILIRUBIN,TOTAL 0.8 mg/dL (0.2-1)
[2021-12-27] MEDS: THIAMINE HCL 100 MG TABLET (FP) PO SCH (22:31)
[2021-12-27] MEDS: MELATONIN 5 MG TABLETS PO SCH (22:42)
[2021-12-28] MEDS ORDERED: LORazepam 1 MG TABLET PO SCH (05:00)
[2021-12-28] MEDS: diazePAM 5 MG TABLET PO SCH ×3 (07:55→22:34)
[2021-12-28] MEDS: PRENATAL VITAMINS W/ FOLIC ACID TABLET (FP) PO SCH (10:49)
[2021-12-28] MEDS: METHOCARBAMOL 500 MG TABLET PO PRN (10:50)
[2021-12-28] MEDS: diazePAM 5 MG TABLET PO PRN (10:50)
[2021-12-28] MEDS: CLOTRIMAZOLE 1% CREAM TP SCH ×2 (10:50→22:35)
[2021-12-28] MEDS: NICOTINE 7 MG/24 HOURS TOPICAL PATCH TD SCH (10:50)
[2021-12-28] MEDS: hydrOXYzine PAMOATE 25 MG CAPSULE (FP) PO PRN (10:50)
[2021-12-28] MEDS: THIAMINE HCL 100 MG TABLET (FP) PO SCH (22:34)
[2021-12-28] MEDS: MELATONIN 5 MG TABLETS PO SCH (22:34)
[2021-12-29] MEDS ORDERED: LORazepam 0.5 MG TABLET PO PRN
[2021-12-29] MEDS ORDERED: LORazepam 0.5 MG TABLET PO SCH (05:00)
[2021-12-29] MEDS: diazePAM 5 MG TABLET PO SCH ×2 (06:11→17:17)
[2021-12-29] MEDS: PRENATAL VITAMINS W/ FOLIC ACID TABLET (FP) PO SCH (10:51)
[2021-12-29] MEDS: diazePAM 5 MG TABLET PO PRN (10:51)
[2021-12-29] MEDS: METHOCARBAMOL 500 MG TABLET PO PRN (10:51)
[2021-12-29] MEDS: hydrOXYzine PAMOATE 25 MG CAPSULE (FP) PO PRN (10:51)
[2021-12-29] MEDS: CLOTRIMAZOLE 1% CREAM TP SCH ×2 (10:52→23:25)
[2021-12-29] MEDS: NICOTINE 7 MG/24 HOURS TOPICAL PATCH TD SCH (10:52)
[2021-12-29] MEDS: THIAMINE HCL 100 MG TABLET (FP) PO SCH (23:25)
[2021-12-29] MEDS: MELATONIN 5 MG TABLETS PO SCH (23:25)
[2021-12-30] MEDS ORDERED: LORazepam 0.5 MG TABLET PO ONE (05:00)
[2021-12-30] MEDS ORDERED: diazePAM 5 MG TABLET PO ONE (06:00)
[2021-12-30 09:08] VITALS: BP 142/86; PULSE 94; RESP 16; TEMP 97.7
[2021-12-30] MEDS: PRENATAL VITAMINS W/ FOLIC ACID TABLET (FP) PO SCH (10:31)
[2021-12-30] MEDS: NICOTINE 7 MG/24 HOURS TOPICAL PATCH TD SCH (10:32)
[2021-12-30] MEDS: CLOTRIMAZOLE 1% CREAM TP SCH (10:32)
== END 2021-12-30 12:30 | disposition home or self-care (01) | DRG 774 ==
LOC: YASAS 18:23 → Y6N 22:41
PROVIDERS: ADMIT Allergy & Immunology; ATTEND Surgery
PROC: HZ2ZZZZ Detoxification Services for Substance Abuse Treatment (ICD-10-PCS; principal; 2021-12-26)
DX: F10.230 Alcohol dependence with withdrawal, uncomplicated (principal); F14.20 Cocaine dependence, uncomplicated; F12.20 Cannabis dependence, uncomplicated; F17.210 Nicotine dependence, cigarettes, uncomplicated; B35.3 Tinea pedis; Z88.8 Allergy status to other drugs, medicaments and biological substances
CPT/HCPCS: 36415; 80053; 85027; 86780; C9803-CS; U0003; U0005

== ENCOUNTER 2022-01-25 12:26 | Inpatient (IN) | payer OTHER ==
[2022-01-25 15:15] VITALS: BMI 20.9
[2022-01-25] MEDS ORDERED: hydrOXYzine PAMOATE 25 MG CAPSULE (FP) PO PRN (15:49)
[2022-01-25] MEDS ORDERED: IBUPROFEN 400 MG TABLET (FP) PO PRN (15:49)
[2022-01-25] MEDS ORDERED: NICOTINE 10 MG CARTRIDGE (INHALER) IH PRN (15:49)
[2022-01-25] MEDS ORDERED: METHOCARBAMOL 500 MG TABLET PO PRN (15:49)
[2022-01-25] MEDS ORDERED: MAG HYDROX/AL HYDROX/SIMETH 30 ML UNIT-DOSE CUP PO PRN (15:49)
[2022-01-25] MEDS ORDERED: BISMUTH SUBSALICYLATE 524 MG/30 ML PO PRN (15:49)
[2022-01-25] MEDS ORDERED: DICYCLOMINE HCL 10 MG CAPSULE PO PRN (15:49)
[2022-01-25] MEDS ORDERED: ACETAMINOPHEN 325 MG TABLET (FP) PO PRN ×2 (15:49)
[2022-01-25] MEDS ORDERED: LOPERAMIDE HCL 2 MG CAPSULE PO PRN (15:49)
[2022-01-25] MEDS ORDERED: MAGNESIUM HYDROX 2400MG/30ML ORAL SUSPENSION 30 ML CUP PO PRN (15:49)
[2022-01-25] MEDS ORDERED: ONDANSETRON *ODT* 4 MG TABLET SL PRN (15:49)
[2022-01-25] MEDS ORDERED: IBUPROFEN 600 MG TABLET (FP) PO PRN (15:49)
[2022-01-25] MEDS ORDERED: POLYETHYLENE GLYCOL (HEALTHYLAX) 3350 17 GM PACKET PO PRN (15:49)
[2022-01-25] MEDS ORDERED: BENZOCAINE/MENTHOL (CHLORASEPTIC ) LOZENGE MM PRN (15:49)
[2022-01-25] MEDS: MELATONIN 5 MG TABLETS PO SCH (22:35)
[2022-01-25] MEDS: THIAMINE HCL 100 MG TABLET (FP) PO SCH (22:35)
[2022-01-26] MEDS: PRENATAL VITAMINS W/ FOLIC ACID TABLET (FP) PO SCH (10:43)
[2022-01-26 12:25] LABS: CALCIUM 8.8 mg/dL (8.5-10.1)
[2022-01-26 12:26] LABS: ALBUMIN 2.9 g/dl (3.4-5.0); BLOOD UREA NITROGEN 22.3 mg/dL (7-18)
[2022-01-26 12:29] LABS: CREATININE 1.4 mg/dL (0.55-1.3)
[2022-01-26 12:30] LABS: BILIRUBIN,TOTAL 0.4 mg/dL (0.2-1); TOT PROT 5.8 g/dl (6.4-8.2)
[2022-01-26 12:38] LABS: HEMATOCRIT 42.8 % (35.4-49); HEMOGLOBIN 13.6 GM/dL (11.7-16.9); MCH 28.5 pg (25.7-33.7); MCHC 31.8 g/dl (32.0-35.9); MEAN CELL VOLUME 89.5 fl (80-96); MEAN PLT VOLUME 9.7 fl (7.5-11.1); PLATELET COUNT 205 10^3/uL (134-434); RBC 4.79 M/mm3 (4.00-5.60); WHITE BLOOD COUNT 8.7 K/mm3 (4.0-10.0)
[2022-01-26] MEDS: MELATONIN 5 MG TABLETS PO SCH (23:56)
[2022-01-26] MEDS: THIAMINE HCL 100 MG TABLET (FP) PO SCH (23:57)
[2022-01-27] MEDS: PRENATAL VITAMINS W/ FOLIC ACID TABLET (FP) PO SCH (10:26)
[2022-01-27 12:58] VITALS: BP 134/80; PULSE 85; RESP 18; TEMP 97.2
== END 2022-01-27 15:38 | disposition home or self-care (01) | DRG 774 ==
LOC: YASAS 12:26 → Y6N 16:43 → UNDOADMIN 16:43
PROVIDERS: ADMIT Allergy & Immunology; ATTEND Surgery
PROC: HZ2ZZZZ Detoxification Services for Substance Abuse Treatment (ICD-10-PCS; principal; 2022-01-25)
DX: F10.230 Alcohol dependence with withdrawal, uncomplicated (principal); F14.20 Cocaine dependence, uncomplicated; F12.20 Cannabis dependence, uncomplicated; F17.210 Nicotine dependence, cigarettes, uncomplicated; Z88.8 Allergy status to other drugs, medicaments and biological substances
CPT/HCPCS: 36415; 80053; 85027; 86780; 87811; C9803-CS; U0003; U0005

== ENCOUNTER 2022-03-19 10:35 | Inpatient (IN) | payer OTHER ==
[2022-03-19 11:37] VITALS: BMI 22.6
[2022-03-19] MEDS ORDERED: POLYETHYLENE GLYCOL (HEALTHYLAX) 3350 17 GM PACKET PO PRN (14:52)
[2022-03-19] MEDS ORDERED: METHOCARBAMOL 500 MG TABLET PO PRN (14:52)
[2022-03-19] MEDS ORDERED: BENZOCAINE/MENTHOL (CHLORASEPTIC ) LOZENGE MM PRN (14:52)
[2022-03-19] MEDS ORDERED: BISMUTH SUBSALICYLATE 262 MG/15 ML BTL PO PRN (14:52)
[2022-03-19] MEDS ORDERED: DICYCLOMINE HCL 10 MG CAPSULE PO PRN (14:52)
[2022-03-19] MEDS ORDERED: NALOXONE HCL (KLOXXADO) 8 MG SPRAY NS PRN (14:52)
[2022-03-19] MEDS ORDERED: MAG HYDROX/AL HYDROX/SIMETH 30 ML UNIT-DOSE CUP PO PRN (14:52)
[2022-03-19] MEDS ORDERED: IBUPROFEN 600 MG TABLET (FP) PO PRN (14:52)
[2022-03-19] MEDS ORDERED: MAGNESIUM HYDROX 2400MG/30ML ORAL SUSPENSION 30 ML CUP PO PRN (14:52)
[2022-03-19] MEDS ORDERED: LOPERAMIDE HCL 2 MG CAPSULE PO PRN (14:52)
[2022-03-19] MEDS ORDERED: ONDANSETRON *ODT* 4 MG TABLET SL PRN (14:52)
[2022-03-19] MEDS ORDERED: NICOTINE 10 MG CARTRIDGE (INHALER) IH PRN (14:52)
[2022-03-19] MEDS ORDERED: IBUPROFEN 400 MG TABLET (FP) PO PRN (14:52)
[2022-03-19] MEDS ORDERED: ACETAMINOPHEN 325 MG TABLET (FP) PO PRN ×2 (14:52)
[2022-03-19] MEDS: MELATONIN 5 MG TABLETS PO SCH (22:19)
[2022-03-19] MEDS: THIAMINE HCL 100 MG TABLET (FP) PO SCH (22:19)
[2022-03-20 12:19] LABS: HEMATOCRIT 41.8 % (35.4-49); HEMOGLOBIN 13.4 GM/dL (11.7-16.9); MCH 28.2 pg (25.7-33.7); MCHC 32.2 g/dl (32.0-35.9); MEAN CELL VOLUME 87.8 fl (80-96); PLATELET COUNT 219 10^3/uL (134-434); RBC 4.76 M/mm3 (4.00-5.60); RDW 12.9 % (11.9-15.9); WHITE BLOOD COUNT 7.8 K/mm3 (4.0-10.0)
[2022-03-20 12:58] LABS: BLOOD UREA NITROGEN 18.5 mg/dL (7-18); CALCIUM 8.6 mg/dL (8.5-10.1)
[2022-03-20 13:01] LABS: CREATININE 1.3 mg/dL (0.55-1.3)
[2022-03-20 13:03] LABS: BILIRUBIN,TOTAL 0.6 mg/dL (0.2-1)
[2022-03-20] MEDS ORDERED: LATANOPROST 0.005% OPHTH SOLN 2.5ML BOTTLE OU SCH (22:00)
[2022-03-20] MEDS: THIAMINE HCL 100 MG TABLET (FP) PO SCH (23:07)
[2022-03-20] MEDS: MELATONIN 5 MG TABLETS PO SCH (23:08)
[2022-03-21 20:54] VITALS: BP 134/90; PULSE 101; RESP 16; TEMP 97.8
== END 2022-03-21 20:43 | disposition other institution (70) | DRG 774 ==
LOC: YASAS 10:35 → Y6N 14:58
PROVIDERS: ADMIT Allergy & Immunology; ATTEND Surgery
PROC: HZ2ZZZZ Detoxification Services for Substance Abuse Treatment (ICD-10-PCS; principal; 2022-03-19)
DX: F10.230 Alcohol dependence with withdrawal, uncomplicated (principal); F14.20 Cocaine dependence, uncomplicated; F12.20 Cannabis dependence, uncomplicated; F17.210 Nicotine dependence, cigarettes, uncomplicated; H40.9 Unspecified glaucoma; Z88.8 Allergy status to other drugs, medicaments and biological substances
CPT/HCPCS: 36415; 80053; 85027; 86780; C9803-CS; U0003; U0005

== ENCOUNTER 2022-03-21 20:59 | Inpatient (IN) | payer OTHER ==
[2022-03-22] MEDS ORDERED: IBUPROFEN 400 MG TABLET (FP) PO PRN (02:56)
[2022-03-22] MEDS ORDERED: BENZOCAINE/MENTHOL (CHLORASEPTIC ) LOZENGE MM PRN (02:56)
[2022-03-22] MEDS ORDERED: ACETAMINOPHEN 325 MG TABLET (FP) PO PRN (02:56)
[2022-03-22] MEDS ORDERED: guaiFENesin 200 MG/10 ML 10 ML UNIT-DOSE CUPS PO PRN (02:56)
[2022-03-22] MEDS ORDERED: LOPERAMIDE HCL 2 MG CAPSULE PO PRN (02:56)
[2022-03-22] MEDS ORDERED: P-EPHED 60MG/TRIPROLIDI 2.5MG TABLET PO PRN (02:56)
[2022-03-22] MEDS ORDERED: NICOTINE 10 MG CARTRIDGE (INHALER) IH PRN (02:56)
[2022-03-22] MEDS ORDERED: MAG HYDROX/AL HYDROX/SIMETH 30 ML UNIT-DOSE CUP PO PRN (02:56)
[2022-03-22] MEDS ORDERED: POLYETHYLENE GLYCOL (HEALTHYLAX) 3350 17 GM PACKET PO PRN (02:56)
[2022-03-22] MEDS ORDERED: MAGNESIUM HYDROX 2400MG/30ML ORAL SUSPENSION 30 ML CUP PO PRN (02:56)
[2022-03-22] MEDS: NICOTINE 14 MG/24 HOURS TOPICAL PATCH TD SCH (11:15)
[2022-03-22] MEDS: PRENATAL VITAMINS W/ FOLIC ACID TABLET (FP) PO SCH (11:16)
[2022-03-22] MEDS: THIAMINE HCL 100 MG TABLET (FP) PO SCH (21:32)
[2022-03-22] MEDS: MELATONIN 5 MG TABLETS PO SCH (21:33)
[2022-03-23] MEDS: NICOTINE 14 MG/24 HOURS TOPICAL PATCH TD SCH (10:45)
[2022-03-23] MEDS: PRENATAL VITAMINS W/ FOLIC ACID TABLET (FP) PO SCH (10:45)
[2022-03-23] MEDS: THIAMINE HCL 100 MG TABLET (FP) PO SCH (21:52)
[2022-03-23] MEDS: MELATONIN 5 MG TABLETS PO SCH (21:52)
[2022-03-24] MEDS: PRENATAL VITAMINS W/ FOLIC ACID TABLET (FP) PO SCH (09:59)
[2022-03-24] MEDS: NICOTINE 14 MG/24 HOURS TOPICAL PATCH TD SCH (09:59)
[2022-03-24] MEDS: MELATONIN 5 MG TABLETS PO SCH (21:45)
[2022-03-24] MEDS: THIAMINE HCL 100 MG TABLET (FP) PO SCH (21:45)
[2022-03-25] MEDS: PRENATAL VITAMINS W/ FOLIC ACID TABLET (FP) PO SCH (10:32)
[2022-03-25] MEDS: NICOTINE 14 MG/24 HOURS TOPICAL PATCH TD SCH (10:32)
[2022-03-25] MEDS: THIAMINE HCL 100 MG TABLET (FP) PO SCH (21:05)
[2022-03-25] MEDS: MELATONIN 5 MG TABLETS PO SCH (21:06)
[2022-03-26] MEDS: NICOTINE 14 MG/24 HOURS TOPICAL PATCH TD SCH (09:59)
[2022-03-26] MEDS: PRENATAL VITAMINS W/ FOLIC ACID TABLET (FP) PO SCH (09:59)
[2022-03-26] MEDS ORDERED: NICOTINE 14 MG/24 HOURS TOPICAL PATCH TD PRN (15:58)
[2022-03-26] MEDS ORDERED: PRENATAL VITAMINS W/ FOLIC ACID TABLET (FP) PO PRN (15:58)
[2022-03-26] MEDS: THIAMINE HCL 100 MG TABLET (FP) PO SCH (23:03)
[2022-03-26] MEDS: MELATONIN 5 MG TABLETS PO SCH (23:03)
[2022-03-26] MEDS: LATANOPROST 0.005% OPHTH SOLN 2.5ML BOTTLE OU SCH (23:03)
[2022-03-27] MEDS: MELATONIN 5 MG TABLETS PO SCH (22:55)
[2022-03-27] MEDS: LATANOPROST 0.005% OPHTH SOLN 2.5ML BOTTLE OU SCH (22:55)
[2022-03-27] MEDS: THIAMINE HCL 100 MG TABLET (FP) PO SCH (22:55)
[2022-03-28] MEDS ORDERED: COLLOIDAL OATMEAL 1 BAR EACH TP PRN (15:05)
[2022-03-28] MEDS: LATANOPROST 0.005% OPHTH SOLN 2.5ML BOTTLE OU SCH (22:05)
[2022-03-28] MEDS: MELATONIN 5 MG TABLETS PO SCH (22:06)
[2022-03-28] MEDS: THIAMINE HCL 100 MG TABLET (FP) PO SCH (22:06)
[2022-03-29 07:04] VITALS: RESP 18
[2022-03-29] MEDS: THIAMINE HCL 100 MG TABLET (FP) PO SCH (21:33)
[2022-03-29] MEDS: LATANOPROST 0.005% OPHTH SOLN 2.5ML BOTTLE OU SCH (21:33)
[2022-03-29] MEDS: MELATONIN 5 MG TABLETS PO SCH (21:33)
[2022-03-30 06:50] VITALS: BP 120/85; PULSE 82; TEMP 97.7
[2022-03-30] MEDS: LATANOPROST 0.005% OPHTH SOLN 2.5ML BOTTLE OU SCH (21:47)
[2022-03-30] MEDS: MELATONIN 5 MG TABLETS PO SCH (21:47)
[2022-03-30] MEDS: THIAMINE HCL 100 MG TABLET (FP) PO SCH (21:47)
== END 2022-03-30 21:55 | disposition left against medical advice (07) | DRG 770 ==
LOC: YASAS 20:59 → Y5N 21:00 → Y3W 03-23 13:45
PROVIDERS: ADMIT Allergy & Immunology; ATTEND Psychiatry & Neurology Pain Medicine
PROC: HZ42ZZZ Group Counseling for Substance Abuse Treatment, Cognitive-Behavioral (ICD-10-PCS; principal; 2022-03-21)
DX: F10.20 Alcohol dependence, uncomplicated (principal); F14.20 Cocaine dependence, uncomplicated; F17.210 Nicotine dependence, cigarettes, uncomplicated; L85.3 Xerosis cutis

== ENCOUNTER 2022-05-10 10:27 | Inpatient (IN) | payer OTHER ==
[2022-05-10 10:42] VITALS: BMI 20.9
[2022-05-10] MEDS ORDERED: LOPERAMIDE HCL 2 MG CAPSULE PO PRN (14:01)
[2022-05-10] MEDS ORDERED: IBUPROFEN 400 MG TABLET (FP) PO PRN (14:01)
[2022-05-10] MEDS ORDERED: POLYETHYLENE GLYCOL (HEALTHYLAX) 3350 17 GM PACKET PO PRN (14:01)
[2022-05-10] MEDS ORDERED: diazePAM 5 MG TABLET PO PRN (14:01)
[2022-05-10] MEDS ORDERED: IBUPROFEN 600 MG TABLET (FP) PO PRN (14:01)
[2022-05-10] MEDS ORDERED: ACETAMINOPHEN 325 MG TABLET (FP) PO PRN ×2 (14:01)
[2022-05-10] MEDS ORDERED: NALOXONE HCL (KLOXXADO) 8 MG SPRAY NS PRN (14:01)
[2022-05-10] MEDS ORDERED: ONDANSETRON *ODT* 4 MG TABLET SL PRN (14:01)
[2022-05-10] MEDS ORDERED: MAG HYDROX/AL HYDROX/SIMETH 30 ML UNIT-DOSE CUP PO PRN (14:01)
[2022-05-10] MEDS ORDERED: BISMUTH SUBSALICYLATE 524 MG/30 ML PO PRN (14:01)
[2022-05-10] MEDS ORDERED: MAGNESIUM HYDROX 2400MG/30ML ORAL SUSPENSION 30 ML CUP PO PRN (14:01)
[2022-05-10] MEDS ORDERED: NICOTINE 10 MG CARTRIDGE (INHALER) IH PRN (14:01)
[2022-05-10] MEDS ORDERED: DICYCLOMINE HCL 10 MG CAPSULE PO PRN (14:01)
[2022-05-10] MEDS ORDERED: BENZOCAINE/MENTHOL (CHLORASEPTIC ) LOZENGE MM PRN (14:01)
[2022-05-10] MEDS ORDERED: hydrOXYzine PAMOATE 25 MG CAPSULE (FP) PO PRN (14:01)
[2022-05-10] MEDS: METHOCARBAMOL 500 MG TABLET PO PRN (18:13)
[2022-05-10] MEDS: diazePAM 5 MG TABLET PO SCH ×2 (18:14→23:00)
[2022-05-10] MEDS: THIAMINE HCL 100 MG TABLET (FP) PO SCH (23:00)
[2022-05-10] MEDS: MELATONIN 5 MG TABLETS PO SCH (23:00)
[2022-05-11] MEDS: diazePAM 5 MG TABLET PO SCH ×4 (06:02→22:05)
[2022-05-11 09:42] LABS: HEMATOCRIT 40.6 % (35.4-49); HEMOGLOBIN 13.1 GM/dL (11.7-16.9); MCH 28.6 pg (25.7-33.7); MCHC 32.3 g/dl (32.0-35.9); MEAN CELL VOLUME 88.8 fl (80-96); MEAN PLT VOLUME 9.3 fl (7.5-11.1); PLATELET COUNT 211 10^3/uL (134-434); RBC 4.58 M/mm3 (4.00-5.60); RDW 13.6 % (11.9-15.9); WHITE BLOOD COUNT 6.6 K/mm3 (4.0-10.0)
[2022-05-11 09:46] LABS: CALCIUM 8.6 mg/dL (8.5-10.1)
[2022-05-11 09:47] LABS: BLOOD UREA NITROGEN 19.6 mg/dL (7-18)
[2022-05-11 09:50] LABS: CREATININE 1.4 mg/dL (0.55-1.3)
[2022-05-11 09:52] LABS: BILIRUBIN,TOTAL 0.5 mg/dL (0.2-1); TOT PROT 6.1 g/dl (6.4-8.2)
[2022-05-11] MEDS: PRENATAL VITAMINS W/ FOLIC ACID TABLET (FP) PO SCH (10:46)
[2022-05-11] MEDS: METHOCARBAMOL 500 MG TABLET PO PRN (22:04)
[2022-05-11] MEDS: MELATONIN 5 MG TABLETS PO SCH (22:05)
[2022-05-11] MEDS: THIAMINE HCL 100 MG TABLET (FP) PO SCH (22:07)
[2022-05-12] MEDS: diazePAM 5 MG TABLET PO SCH ×3 (06:07→22:38)
[2022-05-12] MEDS: PRENATAL VITAMINS W/ FOLIC ACID TABLET (FP) PO SCH (10:20)
[2022-05-12 10:52] LABS: BLOOD UREA NITROGEN 21.4 mg/dL (7-18)
[2022-05-12 10:55] LABS: CREATININE 1.3 mg/dL (0.55-1.3)
[2022-05-12] MEDS: THIAMINE HCL 100 MG TABLET (FP) PO SCH (22:38)
[2022-05-12] MEDS: MELATONIN 5 MG TABLETS PO SCH (22:38)
[2022-05-13] MEDS: diazePAM 5 MG TABLET PO SCH ×2 (05:14→17:43)
[2022-05-13] MEDS: PRENATAL VITAMINS W/ FOLIC ACID TABLET (FP) PO SCH ×2 (10:34→10:36)
[2022-05-13] MEDS ORDERED: LATANOPROST 0.005% OPHTH SOLN 2.5ML BOTTLE OU SCH (22:00)
[2022-05-13] MEDS: MELATONIN 5 MG TABLETS PO SCH (22:17)
[2022-05-13] MEDS: THIAMINE HCL 100 MG TABLET (FP) PO SCH (22:17)
[2022-05-13] MEDS: METHOCARBAMOL 500 MG TABLET PO PRN (22:18)
[2022-05-14] MEDS ORDERED: diazePAM 5 MG TABLET PO ONE (06:00)
[2022-05-14 09:53] VITALS: BP 120/70; PULSE 90; RESP 16; TEMP 99.1
[2022-05-14] MEDS: PRENATAL VITAMINS W/ FOLIC ACID TABLET (FP) PO SCH (10:09)
== END 2022-05-14 12:11 | disposition other institution (70) | DRG 774 ==
LOC: YASAS 10:27 → Y3N 17:16
PROVIDERS: ADMIT Allergy & Immunology; ATTEND Surgery
PROC: HZ2ZZZZ Detoxification Services for Substance Abuse Treatment (ICD-10-PCS; principal; 2022-05-10)
DX: F10.230 Alcohol dependence with withdrawal, uncomplicated (principal); F14.20 Cocaine dependence, uncomplicated; F17.210 Nicotine dependence, cigarettes, uncomplicated; F41.9 Anxiety disorder, unspecified; E46 Unspecified protein-calorie malnutrition; N17.9 Acute kidney failure, unspecified; H40.223 Chronic angle-closure glaucoma, bilateral; R63.4 Abnormal weight loss; Z68.1 Body mass index [BMI] 19.9 or less, adult; Z88.8 Allergy status to other drugs, medicaments and biological substances
CPT/HCPCS: 36415; 80048; 80053; 85027; 86780; 87811; C9803-CS; U0003; U0005

== ENCOUNTER 2022-05-14 12:13 | Inpatient (IN) | payer OTHER ==
[2022-05-14] MEDS ORDERED: LOPERAMIDE HCL 2 MG CAPSULE PO PRN (14:10)
[2022-05-14] MEDS ORDERED: NALOXONE HCL 0.4 MG/ML VIAL IVPUSH PRN (14:10)
[2022-05-14] MEDS ORDERED: NICOTINE 10 MG CARTRIDGE (INHALER) IH PRN (14:10)
[2022-05-14] MEDS ORDERED: POLYETHYLENE GLYCOL (HEALTHYLAX) 3350 17 GM PACKET PO PRN (14:10)
[2022-05-14] MEDS ORDERED: MAG HYDROX/AL HYDROX/SIMETH 30 ML UNIT-DOSE CUP PO PRN (14:10)
[2022-05-14] MEDS ORDERED: guaiFENesin 600 MG TABLET.ER (FP) PO PRN (14:10)
[2022-05-14] MEDS ORDERED: hydrOXYzine PAMOATE 25 MG CAPSULE (FP) PO PRN (14:10)
[2022-05-14] MEDS ORDERED: MAGNESIUM HYDROX 2400MG/30ML ORAL SUSPENSION 30 ML CUP PO PRN (14:10)
[2022-05-14] MEDS ORDERED: IBUPROFEN 600 MG TABLET (FP) PO PRN (14:10)
[2022-05-14] MEDS ORDERED: BENZONATATE 200 MG CAPSULE PO PRN (14:10)
[2022-05-14] MEDS ORDERED: IBUPROFEN 400 MG TABLET (FP) PO PRN (14:10)
[2022-05-14] MEDS ORDERED: ACETAMINOPHEN 325 MG TABLET (FP) PO PRN (14:10)
[2022-05-14] MEDS ORDERED: BENZOCAINE/MENTHOL (CHLORASEPTIC ) LOZENGE MM PRN (14:10)
[2022-05-14] MEDS ORDERED: NALOXONE HCL (KLOXXADO) 8 MG SPRAY NS PRN (14:10)
[2022-05-14] MEDS ORDERED: THIAMINE HCL 100 MG TABLET (FP) PO SCH (22:00)
[2022-05-14] MEDS ORDERED: MELATONIN 5 MG TABLETS PO SCH (22:00)
[2022-05-14] MEDS ORDERED: LATANOPROST 0.005% OPHTH SOLN 2.5ML BOTTLE OU SCH (22:00)
[2022-05-15 06:48] VITALS: BP 128/79; PULSE 80; RESP 20; TEMP 97.7
[2022-05-15] MEDS ORDERED: PRENATAL VITAMINS W/ FOLIC ACID TABLET (FP) PO SCH (10:00)
[2022-05-15] MEDS ORDERED: METHOCARBAMOL 500 MG TABLET PO PRN (10:45)
== END 2022-05-15 11:00 | disposition left against medical advice (07) | DRG 770 ==
LOC: YASAS 12:13 → Y3E 12:14
PROVIDERS: ADMIT Allergy & Immunology; ATTEND Allergy & Immunology
PROC: HZ42ZZZ Group Counseling for Substance Abuse Treatment, Cognitive-Behavioral (ICD-10-PCS; principal; 2022-05-14)
DX: F10.20 Alcohol dependence, uncomplicated (principal); F14.20 Cocaine dependence, uncomplicated; F12.20 Cannabis dependence, uncomplicated; F17.210 Nicotine dependence, cigarettes, uncomplicated; H40.9 Unspecified glaucoma; F91.8 Other conduct disorders; Z91.199 Patient's noncompliance with other medical treatment and regimen due to unspecified reason
CPT/HCPCS: 36415; 86803

== ENCOUNTER 2022-06-09 08:54 | Inpatient (IN) | payer OTHER ==
[2022-06-09 09:23] VITALS: BMI 20.6
[2022-06-09] MEDS ORDERED: NICOTINE POLACRILEX 2 MG GUM BUC PRN (09:29)
[2022-06-09] MEDS ORDERED: ACETAMINOPHEN 325 MG TABLET (FP) PO PRN (09:29)
[2022-06-09] MEDS ORDERED: NICOTINE 10 MG CARTRIDGE (INHALER) IH PRN (09:29)
[2022-06-09] MEDS ORDERED: NICOTINE 7 MG/24 HOURS TOPICAL PATCH TD PRN (09:29)
[2022-06-09] MEDS ORDERED: IBUPROFEN 400 MG TABLET (FP) PO PRN (09:29)
[2022-06-09] MEDS ORDERED: guaiFENesin 600 MG TABLET.ER (FP) PO PRN (09:29)
[2022-06-09] MEDS ORDERED: POLYETHYLENE GLYCOL (HEALTHYLAX) 3350 17 GM PACKET PO PRN (09:29)
[2022-06-09] MEDS ORDERED: LOPERAMIDE HCL 2 MG CAPSULE PO PRN (09:29)
[2022-06-09] MEDS ORDERED: BENZOCAINE/MENTHOL (CHLORASEPTIC ) LOZENGE MM PRN (09:29)
[2022-06-09] MEDS ORDERED: MAG HYDROX/AL HYDROX/SIMETH 30 ML UNIT-DOSE CUP PO PRN (09:29)
[2022-06-09] MEDS ORDERED: MAGNESIUM HYDROX 2400MG/30ML ORAL SUSPENSION 30 ML CUP PO PRN (09:29)
[2022-06-09] MEDS ORDERED: hydrOXYzine PAMOATE 25 MG CAPSULE (FP) PO PRN (09:29)
[2022-06-09] MEDS ORDERED: BENZONATATE 200 MG CAPSULE PO PRN (09:29)
[2022-06-09] MEDS: PRENATAL VITAMINS W/ FOLIC ACID TABLET (FP) PO SCH (10:58)
[2022-06-09] MEDS: THIAMINE HCL 100 MG TABLET (FP) PO SCH (23:14)
[2022-06-09] MEDS: MELATONIN 5 MG TABLETS PO SCH (23:14)
[2022-06-10] MEDS: PRENATAL VITAMINS W/ FOLIC ACID TABLET (FP) PO SCH (09:43)
[2022-06-10] MEDS: MELATONIN 5 MG TABLETS PO SCH (21:30)
[2022-06-10] MEDS: THIAMINE HCL 100 MG TABLET (FP) PO SCH (21:30)
[2022-06-10] MEDS: IBUPROFEN 600 MG TABLET (FP) PO PRN (21:31)
[2022-06-11] MEDS: MELATONIN 5 MG TABLETS PO SCH (21:12)
[2022-06-11] MEDS: THIAMINE HCL 100 MG TABLET (FP) PO SCH (21:12)
[2022-06-11] MEDS: IBUPROFEN 600 MG TABLET (FP) PO PRN (21:13)
[2022-06-12 16:18] LABS: URINE APPEARANCE CLEAR; URINE BILIRUBIN NEGATIVE (NEGATIVE); URINE COLOR YELLOW; URINE GLUCOSE (UA) NEGATIVE (NEGATIVE); URINE KETONE NEGATIVE (NEGATIVE); URINE LEUK ESTERASE NEGATIVE (NEGATIVE); URINE NITRITE NEGATIVE (NEGATIVE); URINE PROTEIN NEGATIVE (NEGATIVE); URINE UROBILINOGEN 0.2 mg/dL (0.2-1.0)
[2022-06-12] MEDS: THIAMINE HCL 100 MG TABLET (FP) PO SCH (21:29)
[2022-06-12] MEDS: IBUPROFEN 600 MG TABLET (FP) PO PRN (21:30)
[2022-06-12] MEDS: MELATONIN 5 MG TABLETS PO SCH (21:30)
[2022-06-13] MEDS: TOLNAFTATE 1% CREAM 15 GM TUBE TP SCH ×2 (10:45→22:26)
[2022-06-13] MEDS: THIAMINE HCL 100 MG TABLET (FP) PO SCH (22:26)
[2022-06-13] MEDS: MELATONIN 5 MG TABLETS PO SCH (22:26)
[2022-06-14] MEDS: TOLNAFTATE 1% CREAM 15 GM TUBE TP SCH ×2 (09:42→21:22)
[2022-06-14] MEDS: PRENATAL VITAMINS W/ FOLIC ACID TABLET (FP) PO PRN (09:42)
[2022-06-14] MEDS ORDERED: COLLOIDAL OATMEAL 1 BAR EACH TP PRN (12:05)
[2022-06-14] MEDS: THIAMINE HCL 100 MG TABLET (FP) PO SCH (21:21)
[2022-06-14] MEDS: MELATONIN 5 MG TABLETS PO SCH (21:22)
[2022-06-15] MEDS: TOLNAFTATE 1% CREAM 15 GM TUBE TP SCH ×2 (09:51→21:36)
[2022-06-15] MEDS: THIAMINE HCL 100 MG TABLET (FP) PO SCH (21:36)
[2022-06-15] MEDS: MELATONIN 5 MG TABLETS PO SCH (21:36)
[2022-06-16] MEDS: TOLNAFTATE 1% CREAM 15 GM TUBE TP SCH ×2 (10:35→21:35)
[2022-06-16] MEDS: MELATONIN 5 MG TABLETS PO SCH (21:35)
[2022-06-16] MEDS: THIAMINE HCL 100 MG TABLET (FP) PO SCH (21:35)
[2022-06-17] MEDS: TOLNAFTATE 1% CREAM 15 GM TUBE TP SCH (10:18)
[2022-06-17] MEDS ORDERED: TOLNAFTATE 1% CREAM 15 GM TUBE TP PRN (11:42)
[2022-06-17] MEDS: MELATONIN 5 MG TABLETS PO SCH (21:55)
[2022-06-17] MEDS: THIAMINE HCL 100 MG TABLET (FP) PO SCH (21:55)
[2022-06-18] MEDS: IBUPROFEN 600 MG TABLET (FP) PO PRN ×2 (08:42→21:45)
[2022-06-18] MEDS: MELATONIN 5 MG TABLETS PO SCH (21:43)
[2022-06-18] MEDS: THIAMINE HCL 100 MG TABLET (FP) PO SCH (21:43)
[2022-06-19 06:41] VITALS: BP 117/70; PULSE 78; RESP 16; TEMP 97.3
[2022-06-19] MEDS: PRENATAL VITAMINS W/ FOLIC ACID TABLET (FP) PO PRN (09:44)
== END 2022-06-19 15:03 | disposition home or self-care (01) | DRG 772 ==
LOC: YASAS 08:54 → Y3E 12:41
PROVIDERS: ADMIT Allergy & Immunology; ATTEND Psychiatry & Neurology Pain Medicine
PROC: HZ42ZZZ Group Counseling for Substance Abuse Treatment, Cognitive-Behavioral (ICD-10-PCS; principal; 2022-06-09)
DX: F14.20 Cocaine dependence, uncomplicated (principal); F17.210 Nicotine dependence, cigarettes, uncomplicated; Z87.39 Personal history of other diseases of the musculoskeletal system and connective tissue
CPT/HCPCS: 36415; 81003; 82962; 86803; C9803-CS; U0003; U0005

== ENCOUNTER 2022-09-13 11:14 | Inpatient (IN) | payer OTHER ==
[2022-09-13 11:41] VITALS: BMI 20.9
[2022-09-13] MEDS ORDERED: MAGNESIUM HYDROX 2400MG/30ML ORAL SUSPENSION 30 ML CUP PO PRN (12:56)
[2022-09-13] MEDS ORDERED: DICYCLOMINE HCL 10 MG CAPSULE PO PRN (12:56)
[2022-09-13] MEDS ORDERED: IBUPROFEN 400 MG TABLET (FP) PO PRN (12:56)
[2022-09-13] MEDS ORDERED: IBUPROFEN 600 MG TABLET (FP) PO PRN (12:56)
[2022-09-13] MEDS ORDERED: BENZOCAINE/MENTHOL (CHLORASEPTIC ) LOZENGE MM PRN (12:56)
[2022-09-13] MEDS ORDERED: BISMUTH SUBSALICYLATE 524 MG/30 ML PO PRN (12:56)
[2022-09-13] MEDS ORDERED: POLYETHYLENE GLYCOL (HEALTHYLAX) 3350 17 GM PACKET PO PRN (12:56)
[2022-09-13] MEDS ORDERED: NALOXONE HCL 0.4 MG/ML VIAL IM PRN (12:56)
[2022-09-13] MEDS ORDERED: LOPERAMIDE HCL 2 MG CAPSULE PO PRN (12:56)
[2022-09-13] MEDS ORDERED: LORazepam 1 MG TABLET PO PRN (12:56)
[2022-09-13] MEDS ORDERED: ACETAMINOPHEN 325 MG TABLET (FP) PO PRN (12:56)
[2022-09-13] MEDS ORDERED: guaiFENesin 600 MG TABLET.ER (FP) PO PRN (12:56)
[2022-09-13] MEDS ORDERED: ONDANSETRON *ODT* 4 MG TABLET SL PRN (12:56)
[2022-09-13] MEDS ORDERED: MAG HYDROX/AL HYDROX/SIMETH 30 ML UNIT-DOSE CUP PO PRN (12:56)
[2022-09-13] MEDS ORDERED: NALOXONE HCL (KLOXXADO) 8 MG SPRAY NS PRN (12:56)
[2022-09-13] MEDS ORDERED: BENZONATATE 200 MG CAPSULE PO PRN (12:56)
[2022-09-13] MEDS: LORazepam 2 MG TABLET PO SCH ×2 (18:07→22:54)
[2022-09-13] MEDS: hydrOXYzine PAMOATE 25 MG CAPSULE (FP) PO PRN (22:53)
[2022-09-13] MEDS: THIAMINE HCL 100 MG TABLET (FP) PO SCH (22:53)
[2022-09-13] MEDS: MELATONIN 5 MG TABLETS PO SCH (22:53)
[2022-09-13] MEDS: METHOCARBAMOL 500 MG TABLET PO PRN (22:54)
[2022-09-14] MEDS: LORazepam 2 MG TABLET PO SCH ×4 (06:27→22:48)
[2022-09-14] MEDS: PRENATAL VITAMINS W/ FOLIC ACID TABLET (FP) PO SCH (10:33)
[2022-09-14] MEDS: NICOTINE 14 MG/24 HOURS TOPICAL PATCH TD SCH (10:33)
[2022-09-14 10:42] LABS: HEMATOCRIT 43.2 % (35.4-49); HEMOGLOBIN 13.7 GM/dL (11.7-16.9); MCH 28.1 pg (25.7-33.7); MCHC 31.8 g/dl (32.0-35.9); MEAN CELL VOLUME 88.6 fl (80-96); MEAN PLT VOLUME 9.9 fl (7.5-11.1); PLATELET COUNT 205 10^3/uL (134-434); RBC 4.88 M/mm3 (4.00-5.60); RDW 12.8 % (11.9-15.9); WHITE BLOOD COUNT 8.2 K/mm3 (4.0-10.0)
[2022-09-14 10:50] LABS: BLOOD UREA NITROGEN 13.9 mg/dL (7-18); CALCIUM 8.7 mg/dL (8.5-10.1)
[2022-09-14 10:51] LABS: ALBUMIN 2.9 g/dl (3.4-5.0)
[2022-09-14 10:54] LABS: CREATININE 1.3 mg/dL (0.55-1.3)
[2022-09-14 10:55] LABS: BILIRUBIN,TOTAL 0.7 mg/dL (0.2-1); TOT PROT 6.1 g/dl (6.4-8.2)
[2022-09-14] MEDS: THIAMINE HCL 100 MG TABLET (FP) PO SCH (22:48)
[2022-09-14] MEDS: MELATONIN 5 MG TABLETS PO SCH (22:48)
[2022-09-15] MEDS: LORazepam 1 MG TABLET PO SCH ×4 (05:17→23:29)
[2022-09-15] MEDS: PRENATAL VITAMINS W/ FOLIC ACID TABLET (FP) PO SCH (10:31)
[2022-09-15] MEDS: NICOTINE 14 MG/24 HOURS TOPICAL PATCH TD SCH (10:32)
[2022-09-15] MEDS: MELATONIN 5 MG TABLETS PO SCH (23:28)
[2022-09-15] MEDS: THIAMINE HCL 100 MG TABLET (FP) PO SCH (23:29)
[2022-09-16] MEDS ORDERED: LORazepam 0.5 MG TABLET PO PRN
[2022-09-16] MEDS: LORazepam 0.5 MG TABLET PO SCH ×2 (05:52→10:00)
[2022-09-16 09:51] VITALS: RESP 16
[2022-09-16] MEDS: NICOTINE 14 MG/24 HOURS TOPICAL PATCH TD SCH (09:59)
[2022-09-16] MEDS: PRENATAL VITAMINS W/ FOLIC ACID TABLET (FP) PO SCH (09:59)
[2022-09-16] MEDS: METHOCARBAMOL 500 MG TABLET PO PRN (10:00)
[2022-09-16] MEDS: hydrOXYzine PAMOATE 25 MG CAPSULE (FP) PO PRN (10:00)
[2022-09-16 12:57] VITALS: BP 114/69; PULSE 80; TEMP 97.7
[2022-09-17] MEDS ORDERED: LORazepam 0.5 MG TABLET PO ONE (05:00)
== END 2022-09-16 15:30 | disposition home or self-care (01) | DRG 774 ==
LOC: YASAS 11:14 → Y3N 13:22
PROVIDERS: ADMIT Allergy & Immunology; ATTEND Surgery
PROC: HZ2ZZZZ Detoxification Services for Substance Abuse Treatment (ICD-10-PCS; principal; 2022-09-13)
DX: F10.230 Alcohol dependence with withdrawal, uncomplicated (principal); F14.20 Cocaine dependence, uncomplicated; F17.210 Nicotine dependence, cigarettes, uncomplicated; S89 Other and unspecified injuries of lower leg; V03.10XS Pedestrian on foot injured in collision with car, pick-up truck or van in traffic accident, sequela; Z99.89 Dependence on other enabling machines and devices; Z88.8 Allergy status to other drugs, medicaments and biological substances; Z56.0 Unemployment, unspecified; Z59.00 Homelessness unspecified
CPT/HCPCS: 36415; 80053; 82962; 85027; 86780; 87635; 87811

== ENCOUNTER 2022-10-13 13:45 | Inpatient (IN) | payer OTHER ==
[2022-10-13 15:07] VITALS: BMI 20.8
[2022-10-13] MEDS ORDERED: BENZONATATE 200 MG CAPSULE PO PRN (18:27)
[2022-10-13] MEDS ORDERED: MAG HYDROX/AL HYDROX/SIMETH 30 ML UNIT-DOSE CUP PO PRN (18:27)
[2022-10-13] MEDS ORDERED: NALOXONE HCL (KLOXXADO) 8 MG SPRAY NS PRN (18:27)
[2022-10-13] MEDS ORDERED: DICYCLOMINE HCL 10 MG CAPSULE PO PRN (18:27)
[2022-10-13] MEDS ORDERED: POLYETHYLENE GLYCOL (HEALTHYLAX) 3350 17 GM PACKET PO PRN (18:27)
[2022-10-13] MEDS ORDERED: NALOXONE HCL 0.4 MG/ML VIAL IM PRN (18:27)
[2022-10-13] MEDS ORDERED: BENZOCAINE/MENTHOL (CHLORASEPTIC ) LOZENGE MM PRN (18:27)
[2022-10-13] MEDS ORDERED: NICOTINE POLACRILEX 2 MG GUM BUC PRN (18:27)
[2022-10-13] MEDS ORDERED: MAGNESIUM HYDROX 2400MG/30ML ORAL SUSPENSION 30 ML CUP PO PRN (18:27)
[2022-10-13] MEDS ORDERED: hydrOXYzine PAMOATE 25 MG CAPSULE (FP) PO PRN (18:27)
[2022-10-13] MEDS ORDERED: LOPERAMIDE HCL 2 MG CAPSULE PO PRN (18:27)
[2022-10-13] MEDS ORDERED: guaiFENesin 600 MG TABLET.ER (FP) PO PRN (18:27)
[2022-10-13] MEDS ORDERED: ONDANSETRON *ODT* 4 MG TABLET SL PRN (18:27)
[2022-10-13] MEDS ORDERED: ACETAMINOPHEN 325 MG TABLET (FP) PO PRN (18:27)
[2022-10-13] MEDS ORDERED: BISMUTH SUBSALICYLATE 524 MG/30 ML PO PRN (18:27)
[2022-10-13] MEDS ORDERED: IBUPROFEN 400 MG TABLET (FP) PO PRN (18:27)
[2022-10-13] MEDS: METHOCARBAMOL 500 MG TABLET PO PRN (20:01)
[2022-10-13] MEDS: THIAMINE HCL 100 MG TABLET (FP) PO SCH (21:11)
[2022-10-13] MEDS: MELATONIN 5 MG TABLETS PO SCH (21:11)
[2022-10-14] MEDS: PRENATAL VITAMINS W/ FOLIC ACID TABLET (FP) PO SCH (10:06)
[2022-10-14 10:08] LABS: HEMATOCRIT 41.3 % (35.4-49); HEMOGLOBIN 13.5 GM/dL (11.7-16.9); MCH 28.5 pg (25.7-33.7); MCHC 32.7 g/dl (32.0-35.9); MEAN CELL VOLUME 87.2 fl (80-96); MEAN PLT VOLUME 9.4 fl (7.5-11.1); PLATELET COUNT 188 10^3/uL (134-434); RBC 4.74 M/mm3 (4.00-5.60); RDW 12.9 % (11.9-15.9); WHITE BLOOD COUNT 8.2 K/mm3 (4.0-10.0)
[2022-10-14 10:32] LABS: POTASSIUM 3.9 mmol/L (3.5-5.1)
[2022-10-14 10:38] LABS: CALCIUM 8.3 mg/dL (8.5-10.1)
[2022-10-14 10:39] LABS: BLOOD UREA NITROGEN 15.7 mg/dL (7-18)
[2022-10-14 10:42] LABS: CREATININE 1.2 mg/dL (0.55-1.3)
[2022-10-14 10:43] LABS: BILIRUBIN,TOTAL 0.3 mg/dL (0.2-1); TOT PROT 5.9 g/dl (6.4-8.2)
[2022-10-14] MEDS: THIAMINE HCL 100 MG TABLET (FP) PO SCH (22:39)
[2022-10-14] MEDS: MELATONIN 5 MG TABLETS PO SCH (22:39)
[2022-10-15] MEDS: IBUPROFEN 600 MG TABLET (FP) PO PRN ×3 (03:13→16:47)
[2022-10-15] MEDS: METHOCARBAMOL 500 MG TABLET PO PRN ×3 (03:13→16:47)
[2022-10-15] MEDS: PRENATAL VITAMINS W/ FOLIC ACID TABLET (FP) PO SCH (10:27)
[2022-10-15] MEDS ORDERED: LISINOPRIL 5 MG TABLET PO ONE (22:12)
[2022-10-15] MEDS: MELATONIN 5 MG TABLETS PO SCH (22:28)
[2022-10-15] MEDS: THIAMINE HCL 100 MG TABLET (FP) PO SCH (22:28)
[2022-10-16 00:01] VITALS: RESP 18
[2022-10-16 06:44] VITALS: BP 133/82; PULSE 80; TEMP 97.3
== END 2022-10-16 09:29 | disposition home or self-care (01) | DRG 774 ==
LOC: YASAS 13:45 → Y3N 18:44
PROVIDERS: ADMIT Allergy & Immunology; ATTEND Allergy & Immunology
PROC: HZ2ZZZZ Detoxification Services for Substance Abuse Treatment (ICD-10-PCS; principal; 2022-10-13)
DX: F10.230 Alcohol dependence with withdrawal, uncomplicated (principal); F14.20 Cocaine dependence, uncomplicated; F17.210 Nicotine dependence, cigarettes, uncomplicated; Z88.8 Allergy status to other drugs, medicaments and biological substances
CPT/HCPCS: 36415; 80053; 85027; 86780; 87635

== ENCOUNTER 2023-01-25 11:48 | Inpatient (IN) | payer OTHER ==
[2023-01-25 14:04] VITALS: BMI 21.6
[2023-01-25] MEDS ORDERED: BENZOCAINE/MENTHOL (CHLORASEPTIC ) LOZENGE MM PRN (16:19)
[2023-01-25] MEDS ORDERED: BENZONATATE 200 MG CAPSULE PO PRN (16:19)
[2023-01-25] MEDS ORDERED: DICYCLOMINE HCL 10 MG CAPSULE PO PRN (16:19)
[2023-01-25] MEDS ORDERED: hydrOXYzine PAMOATE 25 MG CAPSULE (FP) PO PRN (16:19)
[2023-01-25] MEDS ORDERED: POLYETHYLENE GLYCOL (HEALTHYLAX) 3350 17 GM PACKET PO PRN (16:19)
[2023-01-25] MEDS ORDERED: NALOXONE HCL 0.4 MG/ML VIAL IM PRN (16:19)
[2023-01-25] MEDS ORDERED: LORazepam 1 MG TABLET PO PRN (16:19)
[2023-01-25] MEDS ORDERED: LOPERAMIDE HCL 2 MG CAPSULE PO PRN (16:19)
[2023-01-25] MEDS ORDERED: MAGNESIUM HYDROX 2400MG/30ML ORAL SUSPENSION 30 ML CUP PO PRN (16:19)
[2023-01-25] MEDS ORDERED: guaiFENesin 600 MG TABLET.ER (FP) PO PRN (16:19)
[2023-01-25] MEDS ORDERED: NALOXONE HCL (KLOXXADO) 8 MG SPRAY NS PRN (16:19)
[2023-01-25] MEDS ORDERED: BISMUTH SUBSALICYLATE 524 MG/30 ML PO PRN (16:19)
[2023-01-25] MEDS ORDERED: ONDANSETRON *ODT* 4 MG TABLET SL PRN (16:19)
[2023-01-25] MEDS ORDERED: MAG HYDROX/AL HYDROX/SIMETH 30 ML UNIT-DOSE CUP PO PRN (16:19)
[2023-01-25] MEDS ORDERED: IBUPROFEN 600 MG TABLET (FP) PO ONE (16:34)
[2023-01-25] MEDS ORDERED: LORazepam 2 MG TABLET ONE (16:34)
[2023-01-25] MEDS: IBUPROFEN 600 MG TABLET (FP) PO PRN (16:42)
[2023-01-25] MEDS: LORazepam 2 MG TABLET PO SCH ×2 (16:42→23:40)
[2023-01-25] MEDS: MELATONIN 5 MG TABLETS PO SCH (23:43)
[2023-01-25] MEDS: THIAMINE HCL 100 MG TABLET (FP) PO SCH (23:45)
[2023-01-26] MEDS: LORazepam 2 MG TABLET PO SCH ×4 (05:55→22:23)
[2023-01-26 10:16] LABS: HEMATOCRIT 43.8 % (35.4-49); HEMOGLOBIN 13.8 GM/dL (11.7-16.9); MCH 28.1 pg (25.7-33.7); MCHC 31.4 g/dl (32.0-35.9); MEAN CELL VOLUME 89.3 fl (80-96); MEAN PLT VOLUME 9.5 fl (7.5-11.1); PLATELET COUNT 199 10^3/uL (134-434); RBC 4.91 M/mm3 (4.00-5.60); RDW 13.2 % (11.9-15.9); WHITE BLOOD COUNT 7.5 K/mm3 (4.0-10.0)
[2023-01-26 10:18] LABS: CHLORIDE 108 mmol/L (98-107); POTASSIUM 4.1 mmol/L (3.5-5.1); SODIUM 140 mmol/L (136-145)
[2023-01-26] MEDS: PRENATAL VITAMINS W/ FOLIC ACID TABLET (FP) PO SCH (10:19)
[2023-01-26 10:20] LABS: ALBUMIN 3.2 g/dl (3.4-5.0); ANION GAP 5 mmol/L (4-13); CALCIUM 8.6 mg/dL (8.5-10.1); CO2 27 mmol/L (21-32); GLUCOSE,RANDOM 92 mg/dL (74-106)
[2023-01-26] MEDS: IBUPROFEN 600 MG TABLET (FP) PO PRN (10:20)
[2023-01-26] MEDS: METHOCARBAMOL 500 MG TABLET PO PRN ×2 (10:20→17:35)
[2023-01-26 10:21] LABS: BLOOD UREA NITROGEN 17.7 mg/dL (7-18)
[2023-01-26 10:23] LABS: CREATININE 1.4 mg/dL (0.55-1.3)
[2023-01-26 10:24] LABS: SGOT/AST 21 U/L (15-37); SGPT/ALT 15 U/L (13-61)
[2023-01-26 10:25] LABS: BILIRUBIN,TOTAL 0.5 mg/dL (0.2-1); TOT PROT 6.2 g/dl (6.4-8.2)
[2023-01-26 10:26] LABS: ALK PHOS 82 U/L (45-117)
[2023-01-26] MEDS: IBUPROFEN 400 MG TABLET (FP) PO PRN (17:35)
[2023-01-26] MEDS: THIAMINE HCL 100 MG TABLET (FP) PO SCH (22:23)
[2023-01-26] MEDS: ACETAMINOPHEN 325 MG TABLET (FP) PO PRN (22:24)
[2023-01-26] MEDS: MELATONIN 5 MG TABLETS PO SCH (22:34)
[2023-01-27] MEDS: LORazepam 1 MG TABLET PO SCH ×4 (06:00→22:30)
[2023-01-27] MEDS: IBUPROFEN 400 MG TABLET (FP) PO PRN ×2 (06:09→22:32)
[2023-01-27] MEDS: PRENATAL VITAMINS W/ FOLIC ACID TABLET (FP) PO SCH (10:15)
[2023-01-27] MEDS: METHOCARBAMOL 500 MG TABLET PO PRN ×2 (10:17→17:28)
[2023-01-27] MEDS: ACETAMINOPHEN 325 MG TABLET (FP) PO PRN (10:17)
[2023-01-27] MEDS: IBUPROFEN 600 MG TABLET (FP) PO PRN (17:28)
[2023-01-27] MEDS: THIAMINE HCL 100 MG TABLET (FP) PO SCH (22:30)
[2023-01-27] MEDS: MELATONIN 5 MG TABLETS PO SCH (22:30)
[2023-01-28] MEDS ORDERED: LORazepam 0.5 MG TABLET PO PRN
[2023-01-28] MEDS: IBUPROFEN 600 MG TABLET (FP) PO PRN (05:28)
[2023-01-28] MEDS: LORazepam 0.5 MG TABLET PO SCH ×2 (05:28→10:04)
[2023-01-28 06:04] VITALS: RESP 16
[2023-01-28 09:31] VITALS: BP 149/78; PULSE 97; TEMP 97.8
[2023-01-28] MEDS: PRENATAL VITAMINS W/ FOLIC ACID TABLET (FP) PO SCH (10:04)
[2023-01-29] MEDS ORDERED: LORazepam 0.5 MG TABLET PO ONE (05:00)
== END 2023-01-28 11:28 | disposition home or self-care (01) | DRG 774 ==
LOC: YASAS 11:48 → Y3N 16:48
PROVIDERS: ADMIT Allergy & Immunology; ATTEND Surgery
PROC: HZ2ZZZZ Detoxification Services for Substance Abuse Treatment (ICD-10-PCS; principal; 2023-01-25)
DX: F10.230 Alcohol dependence with withdrawal, uncomplicated (principal); F14.20 Cocaine dependence, uncomplicated; F17.210 Nicotine dependence, cigarettes, uncomplicated; Z88.8 Allergy status to other drugs, medicaments and biological substances
CPT/HCPCS: 36415; 80053; 80307; 85027; 86780; 87635; 87811

== ENCOUNTER 2023-03-31 10:38 | Inpatient (IN) | payer OTHER ==
[2023-03-31 11:24] VITALS: BMI 21.1
[2023-03-31] MEDS ORDERED: NALOXONE HCL 0.4 MG/ML VIAL IM PRN (13:54)
[2023-03-31] MEDS ORDERED: LOPERAMIDE HCL 2 MG CAPSULE PO PRN (13:54)
[2023-03-31] MEDS ORDERED: ACETAMINOPHEN 325 MG TABLET (FP) PO PRN (13:54)
[2023-03-31] MEDS ORDERED: NICOTINE POLACRILEX 2 MG GUM BUC PRN (13:54)
[2023-03-31] MEDS ORDERED: IBUPROFEN 600 MG TABLET (FP) PO PRN (13:54)
[2023-03-31] MEDS ORDERED: IBUPROFEN 400 MG TABLET (FP) PO PRN (13:54)
[2023-03-31] MEDS ORDERED: NALOXONE HCL (KLOXXADO) 8 MG SPRAY NS PRN (13:54)
[2023-03-31] MEDS ORDERED: MAGNESIUM HYDROX 2400MG/30ML ORAL SUSPENSION 30 ML CUP PO PRN (13:54)
[2023-03-31] MEDS ORDERED: BISMUTH SUBSALICYLATE 262 MG/15 ML BTL PO PRN (13:54)
[2023-03-31] MEDS ORDERED: POLYETHYLENE GLYCOL (HEALTHYLAX) 3350 17 GM PACKET PO PRN (13:54)
[2023-03-31] MEDS ORDERED: ONDANSETRON *ODT* 4 MG TABLET SL PRN (13:54)
[2023-03-31] MEDS ORDERED: hydrOXYzine PAMOATE 25 MG CAPSULE (FP) PO PRN (13:54)
[2023-03-31] MEDS ORDERED: BENZONATATE 200 MG CAPSULE PO PRN (13:54)
[2023-03-31] MEDS ORDERED: DICYCLOMINE HCL 10 MG CAPSULE PO PRN (13:54)
[2023-03-31] MEDS ORDERED: BENZOCAINE/MENTHOL (CHLORASEPTIC ) LOZENGE MM PRN (13:54)
[2023-03-31] MEDS ORDERED: guaiFENesin 600 MG TABLET.ER (FP) PO PRN (13:54)
[2023-03-31] MEDS ORDERED: MAG HYDROX/AL HYDROX/SIMETH 30 ML UNIT-DOSE CUP PO PRN (13:54)
[2023-03-31] MEDS ORDERED: LORazepam 1 MG TABLET PO PRN (13:54)
[2023-03-31] MEDS ORDERED: METHOCARBAMOL 500 MG TABLET PO PRN (13:54)
[2023-03-31] MEDS: PRENATAL VITAMINS W/ FOLIC ACID TABLET (FP) PO SCH (14:46)
[2023-03-31] MEDS: LORazepam 2 MG TABLET PO SCH ×2 (17:51→22:37)
[2023-03-31] MEDS: THIAMINE HCL 100 MG TABLET (FP) PO SCH (22:37)
[2023-03-31] MEDS: MELATONIN 5 MG TABLETS PO SCH (22:37)
[2023-04-01] MEDS: LORazepam 2 MG TABLET PO SCH ×4 (05:59→22:15)
[2023-04-01 10:00] LABS: HEMATOCRIT 41.2 % (35.4-49); MEAN CELL VOLUME 88.3 fl (80-96); MEAN PLT VOLUME 10.1 fl (7.5-11.1); PLATELET COUNT 238 10^3/uL (134-434); RBC 4.67 M/mm3 (4.00-5.60); RDW 13.5 % (11.9-15.9); WHITE BLOOD COUNT 8.1 K/mm3 (4.0-10.0)
[2023-04-01 10:38] LABS: POTASSIUM 4.8 mmol/L (3.5-5.1)
[2023-04-01] MEDS: PRENATAL VITAMINS W/ FOLIC ACID TABLET (FP) PO SCH (10:42)
[2023-04-01 10:43] LABS: CALCIUM 8.9 mg/dL (8.5-10.1)
[2023-04-01 10:44] LABS: ALBUMIN 3.3 g/dl (3.4-5.0)
[2023-04-01 10:46] LABS: CREATININE 1.7 mg/dL (0.55-1.3)
[2023-04-01 10:48] LABS: BILIRUBIN,TOTAL 0.6 mg/dL (0.2-1); TOT PROT 6.6 g/dl (6.4-8.2)
[2023-04-01] MEDS: THIAMINE HCL 100 MG TABLET (FP) PO SCH (22:14)
[2023-04-01] MEDS: MELATONIN 5 MG TABLETS PO SCH (22:16)
[2023-04-02] MEDS: LORazepam 1 MG TABLET PO SCH ×2 (05:31→10:29)
[2023-04-02] MEDS: PRENATAL VITAMINS W/ FOLIC ACID TABLET (FP) PO SCH (10:29)
[2023-04-02 11:44] LABS: POTASSIUM 4.4 mmol/L (3.5-5.1)
[2023-04-02 11:47] LABS: CALCIUM 9.1 mg/dL (8.5-10.1)
[2023-04-02 11:48] LABS: ALBUMIN 3.2 g/dl (3.4-5.0); BLOOD UREA NITROGEN 22.6 mg/dL (7-18)
[2023-04-02 11:51] LABS: CREATININE 1.5 mg/dL (0.55-1.3); PHOSPHOROUS 2.2 mg/dL (2.5-4.9)
[2023-04-02 13:22] VITALS: BP 116/78; PULSE 110; RESP 16; TEMP 97.3
[2023-04-03] MEDS ORDERED: LORazepam 0.5 MG TABLET PO PRN
[2023-04-03] MEDS ORDERED: LORazepam 0.5 MG TABLET PO SCH (05:00)
[2023-04-04] MEDS ORDERED: LORazepam 0.5 MG TABLET PO ONE (05:00)
== END 2023-04-02 13:38 | disposition home or self-care (01) | DRG 774 ==
LOC: YASAS 10:38 → Y6N 14:15
PROVIDERS: ADMIT Allergy & Immunology; ATTEND Allergy & Immunology
PROC: HZ2ZZZZ Detoxification Services for Substance Abuse Treatment (ICD-10-PCS; principal; 2023-03-31)
DX: F10.230 Alcohol dependence with withdrawal, uncomplicated (principal); F14.20 Cocaine dependence, uncomplicated; F17.210 Nicotine dependence, cigarettes, uncomplicated; Z88.8 Allergy status to other drugs, medicaments and biological substances
CPT/HCPCS: 36415; 80053; 80069; 80307; 82565; 85027; 86780; 87635; 87811

== ENCOUNTER 2023-06-03 14:41 | Inpatient (IN) | payer OTHER ==
[2023-06-03 15:50] VITALS: BMI 21.2
[2023-06-03] MEDS ORDERED: IBUPROFEN 400 MG TABLET (FP) PO PRN (20:23)
[2023-06-03] MEDS ORDERED: NALOXONE HCL 0.4 MG/ML VIAL IM PRN (20:23)
[2023-06-03] MEDS ORDERED: MAG HYDROX/AL HYDROX/SIMETH 30 ML UNIT-DOSE CUP PO PRN (20:23)
[2023-06-03] MEDS ORDERED: BENZOCAINE/MENTHOL (CHLORASEPTIC ) LOZENGE MM PRN (20:23)
[2023-06-03] MEDS ORDERED: LOPERAMIDE HCL 2 MG CAPSULE PO PRN (20:23)
[2023-06-03] MEDS ORDERED: NALOXONE HCL (KLOXXADO) 8 MG SPRAY NS PRN (20:23)
[2023-06-03] MEDS ORDERED: guaiFENesin 600 MG TABLET.ER (FP) PO PRN (20:23)
[2023-06-03] MEDS ORDERED: BENZONATATE 200 MG CAPSULE PO PRN (20:23)
[2023-06-03] MEDS ORDERED: hydrOXYzine PAMOATE 25 MG CAPSULE (FP) PO PRN (20:23)
[2023-06-03] MEDS ORDERED: MAGNESIUM HYDROX 2400MG/30ML ORAL SUSPENSION 30 ML CUP PO PRN (20:23)
[2023-06-03] MEDS ORDERED: POLYETHYLENE GLYCOL (HEALTHYLAX) 3350 17 GM PACKET PO PRN (20:23)
[2023-06-03] MEDS: IBUPROFEN 600 MG TABLET (FP) PO PRN (22:15)
[2023-06-03] MEDS: MELATONIN 5 MG TABLETS PO SCH (22:16)
[2023-06-03] MEDS: THIAMINE HCL 100 MG TABLET (FP) PO SCH (22:16)
[2023-06-04] MEDS ORDERED: PRENATAL VITAMINS W/ FOLIC ACID TABLET (FP) PO SCH (10:00)
[2023-06-04 11:43] LABS: HEMATOCRIT 39.5 % (35.4-49); HEMOGLOBIN 12.7 GM/dL (11.7-16.9); MCH 28.3 pg (25.7-33.7); MCHC 32.1 g/dl (32.0-35.9); MEAN CELL VOLUME 88.1 fl (80-96); MEAN PLT VOLUME 9.2 fl (7.5-11.1); PLATELET COUNT 223 10^3/uL (134-434); RBC 4.48 M/mm3 (4.00-5.60); WHITE BLOOD COUNT 8.5 K/mm3 (4.0-10.0)
[2023-06-04 11:47] LABS: CHLORIDE 106 mmol/L (98-107); POTASSIUM 3.7 mmol/L (3.5-5.1); SODIUM 138 mmol/L (136-145)
[2023-06-04 11:53] LABS: ANION GAP 1 mmol/L (4-13); CALCIUM 8.8 mg/dL (8.5-10.1); CO2 31 mmol/L (21-32); GLUCOSE,RANDOM 95 mg/dL (74-106)
[2023-06-04 11:55] LABS: BLOOD UREA NITROGEN 18.8 mg/dL (7-18)
[2023-06-04 11:57] LABS: SGOT/AST 21 U/L (15-37); SGPT/ALT 17 U/L (13-61)
[2023-06-04 12:00] LABS: ALK PHOS 79 U/L (45-117); BILIRUBIN,TOTAL 0.4 mg/dL (0.2-1); CREATININE 1.4 mg/dL (0.55-1.3)
[2023-06-04 12:26] LABS: SYPHILIS W/ RPR CONF NON-REACTIVE (NONREACTIVE)
[2023-06-04 14:23] LABS: EPI CELLS >36 /uL (0-25.1); HYALINE CASTS 9 /uL (0-3.1); URINE APPEARANCE CLEAR; URINE BACTERIA 36 /uL (0-1359); URINE BILIRUBIN NEGATIVE (NEGATIVE); URINE COLOR YELLOW; URINE GLUCOSE (UA) NEGATIVE (NEGATIVE); URINE KETONE TRACE (NEGATIVE); URINE LEUK ESTERASE 1+ (NEGATIVE); URINE NITRITE NEGATIVE (NEGATIVE); URINE PROTEIN TRACE (NEGATIVE); URINE RBC 20 /uL (0-23.9); URINE WBC 81 /uL (0-25.8)
[2023-06-05] MEDS: PRENATAL VITAMINS W/ FOLIC ACID TABLET (FP) PO SCH (06:54)
[2023-06-05] MEDS: TOLNAFTATE 1% POWDER 45 GM POW TP SCH (12:50)
[2023-06-08] MEDS ORDERED: BACLOFEN 10 MG TABLET (FP) PO PRN (07:53)
[2023-06-08] MEDS: BACLOFEN 10 MG TABLET (FP) PO SCH (09:49)
[2023-06-09] MEDS: PRENATAL VITAMINS W/ FOLIC ACID TABLET (FP) PO SCH (10:10)
[2023-06-12] MEDS: ACETAMINOPHEN 325 MG TABLET (FP) PO PRN (13:41)
[2023-06-13 11:54] VITALS: RESP 18; TEMP 97.8
[2023-06-15 09:06] VITALS: BP 123/81; PULSE 73
== END 2023-06-15 18:25 | disposition home or self-care (01) | DRG 772 ==
LOC: YASAS 14:41 → Y3NR 20:49 → Y3E 06-04 11:31 → Y3W 06-11 21:07
PROVIDERS: ADMIT Allergy & Immunology; ATTEND Psychiatry & Neurology Pain Medicine
PROC: HZ42ZZZ Group Counseling for Substance Abuse Treatment, Cognitive-Behavioral (ICD-10-PCS; principal; 2023-06-03)
DX: F14.20 Cocaine dependence, uncomplicated (principal); F12.20 Cannabis dependence, uncomplicated; F17.210 Nicotine dependence, cigarettes, uncomplicated; B35.3 Tinea pedis; M54.50 Low back pain, unspecified; G89.29 Other chronic pain; R79.89 Other specified abnormal findings of blood chemistry; Z88.8 Allergy status to other drugs, medicaments and biological substances
CPT/HCPCS: 36415; 80053; 80305; 80307; 81003; 85027; 86780; 86803; 87811; J0475